=== PATIENT | female | born 1965 | race Caucasian/White ===

== ENCOUNTER → 2017-10-30 11:25 | Outpatient (CLI) | payer OTHER, SELFPAY ==
[2017-11-01 13:05] LABS: HPV Reflexed? NOT INDICATED
== END ==
PROVIDERS: Family Provider Student in an Organized Health Care Education/Training Program; PCP Student in an Organized Health Care Education/Training Program; Visit Provider Obstetrics & Gynecology
DX: Z12.4 Encounter for screening for malignant neoplasm of cervix (principal)
CPT/HCPCS: 88175; G0145

== ENCOUNTER → 2017-11-29 07:45 | Outpatient (CLI) | payer OTHER, SELFPAY ==
--- NOTE | 2017-11-29 07:52 | BI_ITS ---
MAMMOGRAPHY - BILATERAL SCREENING REASON FOR EXAM: Female, 52 years old. Routine annual screening examination. PERTINENT HISTORY: Aunt with breast cancer. TECHNIQUE: Digital bilateral breast justo (3D mammographic acquisition) in the CC and MLO projections. 2-D mediolateral oblique (MLO) and craniocaudad (CC) views of both breasts were obtained. CAD: Full Field Digital Mammography with Computer Added Detection was performed. COMPARISON: Comparison is made with prior study dated September 21, 2016 and August 05, 2015. FINDINGS: Breast Composition: The breasts are extremely dense, which lowers the sensitivity of mammography. Stable 1.1 cm x 0.7 cm well-defined nodule in the deep upper midportion of the left breast. On prior sonogram, this was demonstrated to be a small cyst. Since prior study, there now is evidence of a focal cluster microcalcification in the upper lateral anterior portion of the left breast. Correlation with magnification views is recommended. No other significant abnormalities are identified. BI/SCREENING MAMM (CAD), BILAT IMPRESSION: Cluster microcalcification in the left breast as described. The patient will be recalled for additional views including magnification spot radiographs. Stable nodular density in the left breast. ASSESSMENT CATEGORY: BIRADS Category 0: Incomplete. Need additional imaging evaluation. A letter regarding these results will be sent to the patient by the facility within 30 days. Approximately 10% of breast cancers are not detected by mammography. A normal mammogram should not delay biopsy of a clinically suspicious abnormality. [id number] Electronically Signed: Britton Johnson MD at 10:56 EDT Tel [phone], Service support ,
== END ==
PROVIDERS: Family Provider Family Medicine; PCP Family Medicine; Visit Provider Obstetrics & Gynecology
DX: Z12.31 Encounter for screening mammogram for malignant neoplasm of breast (principal)
CPT/HCPCS: 77063; 77067

== ENCOUNTER → 2017-12-04 15:00 | Outpatient (CLI) | payer OTHER, SELFPAY ==
--- NOTE | 2017-12-04 15:01 | BI_ITS ---
MAMMOGRAPHY - UNILATERAL DIAGNOSTIC: LEFT BREAST REASON FOR EXAM: Female, 52 years old. Microcalcifications in the upper outer quadrant of the left breast. PERTINENT HISTORY: TECHNIQUE: Compression magnification views were obtained. CAD: Full Field Digital Mammography with Computer Added Detection was performed. COMPARISON: Comparison is made with prior study dated November 29, 2017. FINDINGS: Breast Composition: The breasts are extremely dense, which lowers the sensitivity of mammography. Focal cluster-like calcification is seen in the upper lateral portion of the breast. A biopsy is recommended for further evaluation. No other significant abnormalities are identified. BI/DIAG MAMM W/CAD, UNILAT IMPRESSION: Cluster of microcalcifications seen in the upper-outer aspect of the left breast. Correlation with a biopsy is recommended. ASSESSMENT CATEGORY: BIRADS Category 4: Suspicious - Biopsy Should Be Considered. A letter regarding these results will be sent to the patient by the facility within 30 days. Approximately 10% of breast cancers are not detected by mammography. A normal mammogram should not delay biopsy of a clinically suspicious abnormality. Electronically Signed: Britton Johnson MD at 16:00 EDT Tel [phone], Service support ,
== END ==
PROVIDERS: Family Provider Family Medicine; PCP Family Medicine; Visit Provider Obstetrics & Gynecology
DX: R92.2 Inconclusive mammogram (principal)
CPT/HCPCS: 77065

== ENCOUNTER → 2017-12-18 09:52 | Outpatient (CLI) | payer OTHER, SELFPAY ==
--- NOTE | 2017-12-18 10:30 | BRBX_PTH ---
PATIENT: DEBORA PONCE LOC: [facility] U#:[id number] AGE/SX: 60/F ROOM: RE12/18/[address]: Dr. Comfort Leung MD : 1965 BED: DIS: SPEC #: [id number] RECD: 12/18/17 13:06 STATUS: DAGMAR LAILA #: [id number] SINGH: 12/18/17 10:[address]: Comfort Leung DEPT: SURGICAL PATHOLOGY RECD BY: Brian Barragan ENTERED: 12/18/17 13:17 SP TYPE: BREAST BX OTHR DR: Dr. Josue Rey MD Tissues: Left breast, NOS Procedures: Surgery Specimen Level IV HEADER OPERATION: Left breast stereotactic biopsy PRE-OP DIAGNOSIS: Left breast calcifications upper lateral portion TISSUE SUBMITTED: Left breast core tissue ISCHEMIC TIME: 1 minute FIXATION TIME: 9 hours MICROSCOPIC DIAGNOSIS Left breast, stereotactic core biopsy: Fibroadenoma with clustered microcalcifications. No evidence of malignancy. AM:balaji 12/19/17 MICROSCOPIC DESCRIPTION Slides are reviewed. GROSS DESCRIPTION Received is one container labeled with the patient's name and not further designated. The specimen consists of multiple irregular fragments of yellow-white soft tissue that in aggregate measure 2.5 x 2 x 0.2 cm. The specimen is totally submitted in one cassette. / AM:balaji 12/18/17 TC:5 CPT: 63511
--- NOTE | 2017-12-18 11:21 | PCM.OP.BLANK ---
Operative Report Date of Procedure: 12/18/17 rocedure: Stereotactic core biopsy Indications: 52 year-old female with microcalcifications in cluster in the upper outer quadrant of the left breast. Risk benefits were discussed the patient and she elected to proceed with stereotactic core biopsy with clip placement Description of procedure: Patient was brought into the mammography suite and laid prone on the stereotactic table. A timeout was completed verifying correct patient, procedure, site, specially, prior to beginning procedure. The left breast was prepped and draped in usual sterile fashion and using local anesthesia was obtained with 1% lidocaine. Patient's left breast was positioned and placed into compression. Initial film showed calcifications are in the center of the compression paddle. 15? views were then taken. The calcifications were localized. The left breast was prepped draped in usual sterile fashion. An 8-gauge mammotome was set up according to the digital coordinates. The tract of the mammotome was anesthetized with local anesthesia and an incision was made with the 11 blade scalpel at the entry site. The mammotome was advanced to the prefire state. Pre-prior films were checked and verified. The mammotome was fired. Post fire films were also checked and verified. Biopsies were taken from 9:00 to 3:00. The specimen was x-rayed and all the calcifications were within the specimen. Mammotome clip was placed at the 12 o'clock position. The mammotome was removed from the breast. An additional films were taken which showed all calcifications were removed and a clip was in place. Pressure was held for hemostasis. Once hemostasis was assured the wound was dressed with Steri-Strips and OpSite. Patient did have a 2 view mammography done to confirm placement of the clip. The patient tolerated the procedure well and was discharged from the mammography suite good condition. complications: none
== END ==
PROVIDERS: Family Provider Family Medicine; PCP Family Medicine; Visit Provider Surgery
DX: D24.2 Benign neoplasm of left breast (principal)
CPT/HCPCS: 19081; 88305; J7050

== ENCOUNTER → 2018-12-11 06:49 | Outpatient (CLI) | payer OTHER, SELFPAY ==
--- NOTE | 2018-12-11 | CER_PTH ---
PATIENT: DEBORA PONCE LOC: [facility] U#:[id number] AGE/SX: 60/F ROOM: RE12/11/[address]: Dr. Leida Alvarado MD : 1965 BED: DIS: SPEC #: [id number] RECD: 12/11/18 17:23 STATUS: DAGMAR REKedar #: [id number] SINGH: 12/11/18 00:[address]: Leida Alvarado DEPT: SURGICAL PATHOLOGY RECD BY: Zak Gustafson ENTERED: 12/12/18 14:23 SP TYPE: CERV OTHR DR: Dr. Josue Rey MD Tissues: A - Uterine cervix, NOS B - Uterine cervix, NOS Procedures: Surgery Specimen Level IV HEADER OPERATION: Endometrial biopsy PRE-OP DIAGNOSIS: N95.0, N84.1 TISSUE SUBMITTED: A - Endocervical, B - Endocervical polyp MICROSCOPIC DIAGNOSIS A. Endometrial biopsy: Proliferative endometrium with glandular and stromal breakdown. B. Endocervical polyp, biopsy: Inflamed benign endocervical polyp. [place]:balaji 12/13/18 MICROSCOPIC DESCRIPTION Slides are reviewed. GROSS DESCRIPTION A - Received in fixative is one container labeled with the patient's name and designated EMB. The specimen consists of multiple fragments of hemorrhagic mucoid tissue that in aggregate measure 2 x 1.5 x 0.2 cm. The specimen is totally submitted in one cassette. B - Received in fixative is one container labeled with the patient's name and designated polyp. The specimen consists of a das-pink polyp measuring 1.3 x 1 x 0.3 cm. Also present in the container are a few minute fragments of hemorrhagic soft tissue. The entire specimen is submitted in one cassette. / [place]:balaji 12/12/18 TC:5 [facility]: [id number] x2
== END ==
PROVIDERS: Family Provider Family Medicine; PCP Family Medicine; Visit Provider Obstetrics & Gynecology
DX: N95.0 Postmenopausal bleeding (principal); N84.1 Polyp of cervix uteri
CPT/HCPCS: 88305

== ENCOUNTER → 2018-12-23 11:20 | Outpatient (CLI) | payer OTHER, SELFPAY ==
[2018-12-24 17:33] LABS: HPV Reflexed? NOT INDICATED
== END ==
PROVIDERS: Visit Provider Obstetrics & Gynecology
DX: Z12.4 Encounter for screening for malignant neoplasm of cervix (principal)
CPT/HCPCS: 88175; G0145

== ENCOUNTER → 2019-01-03 12:48 | Outpatient (CLI) | payer OTHER, SELFPAY ==
[2017-12-13 10:38] VITALS: BMI 24.0
--- NOTE | 2019-01-03 12:51 | BI_ITS ---
MAMMOGRAPHY - BILATERAL SCREENING REASON FOR EXAM: Female, 53 years old. Routine annual screening examination. PERTINENT HISTORY: Aunt with breast cancer. Prior right stereotactic breast biopsy. TECHNIQUE: Digital bilateral breast justo (3D mammographic acquisition) in the CC and MLO projections. 2-D mediolateral oblique (MLO) and craniocaudad (CC) views of both breasts were obtained. CAD: Full Field Digital Mammography with Computer Added Detection was performed. COMPARISON: Comparison is made with prior examination dated November 29, 2017 and September 21, 2016. FINDINGS: Breast Composition: The breasts are extremely dense, which lowers the sensitivity of mammography. There are no dominant masses or suspicious calcifications. A tissue clip marker is seen in the calcifications in the anterior upper lateral portion of the left breast. Stable 1.1 cm x 0.7 cm well-defined nodule in the deep upper midportion of the left breast. On prior sonogram, this was demonstrated to be a cyst. No other significant abnormalities are identified. There has been no significant change since the prior study. BI/SCREENING MAMM (CAD), BILAT IMPRESSION: Stable bilateral screening mammogram. Yearly follow-up mammogram recommended. (A) ASSESSMENT CATEGORY: BIRADS Category 2: Benign. A letter regarding these results will be sent to the patient by the facility within 30 days. Approximately 10% of breast cancers are not detected by mammography. A normal mammogram should not delay biopsy of a clinically suspicious abnormality. [id number] Electronically Signed: Britton Johnson, at 14:18 EDT , Service support ,
== END ==
PROVIDERS: Family Provider Family Medicine; PCP Family Medicine; Referring Provider Obstetrics & Gynecology; Visit Provider Obstetrics & Gynecology
DX: Z12.31 Encounter for screening mammogram for malignant neoplasm of breast (principal)
CPT/HCPCS: 77063; 77067

== ENCOUNTER → 2019-02-03 08:15 | Outpatient (CLI) | payer OTHER, SELFPAY ==
[2019-02-03 10:51] LABS: Estradiol 30.8 pg/mL
== END ==
PROVIDERS: PCP Family Medicine; Visit Provider Obstetrics & Gynecology
DX: N92.6 Irregular menstruation, unspecified (principal)
CPT/HCPCS: 36415; 82670; 83001

== ENCOUNTER → 2020-07-20 08:41 | Outpatient (CLI) | payer OTHER, SELFPAY ==
--- NOTE | 2020-07-20 08:43 | BI_ITS ---
MAMMOGRAPHY - BILATERAL SCREENING REASON FOR EXAM: Female, 55 years old. Routine annual screening examination. PERTINENT HISTORY: TECHNIQUE: Digital bilateral breast mireille (3D mammographic acquisition) in the CC and MLO projections. 2-D mediolateral oblique (MLO) and craniocaudad (CC) views of both breasts were obtained. CAD: Full Field Digital Mammography with Computer Added Detection was performed. COMPARISON: None. FINDINGS: Breast Composition: Dense There are no dominant masses or suspicious calcifications. No other significant abnormalities are identified. BI/SCREEN MAMM (CAD) W/MIREILLE BILAT IMPRESSION: Stable bilateral screening mammogram. Yearly follow-up mammogram recommended. (A) ASSESSMENT CATEGORY: BIRADS Category 1: Negative. A letter regarding these results will be sent to the patient by the facility within 30 days. Approximately 10% of breast cancers are not detected by mammography. A normal mammogram should not delay biopsy of a clinically suspicious abnormality. [id number] Electronically Signed: Pedro Langley, at 17:42 EST Tel , Service support ,
== END ==
PROVIDERS: PCP Family Medicine; Referring Provider Student in an Organized Health Care Education/Training Program; Visit Provider Student in an Organized Health Care Education/Training Program
DX: Z12.31 Encounter for screening mammogram for malignant neoplasm of breast (principal)
CPT/HCPCS: 77063; 77067

== ENCOUNTER → 2021-04-20 14:30 | Outpatient (CLI) | payer OTHER, SELFPAY ==
[2021-04-26 17:00] LABS: HPV Reflexed? NOT INDICATED
== END ==
PROVIDERS: PCP Family Medicine; Visit Provider Obstetrics & Gynecology
DX: Z12.4 Encounter for screening for malignant neoplasm of cervix (principal)
CPT/HCPCS: 88175; G0145

== ENCOUNTER 2021-10-11 08:01 | Outpatient (CLI) | payer OTHER, SELFPAY ==
--- NOTE | 2021-10-11 08:03 | BI_ITS ---
MAMMOGRAPHY - BILATERAL SCREENING REASON FOR EXAM: Female, 56 years old. Routine annual screening examination. PERTINENT HISTORY: Aunt with breast cancer. History of prior right stereotactic breast biopsy. TECHNIQUE: Digital bilateral breast mireille (3D mammographic acquisition) in the CC and MLO projections. 2-D mediolateral oblique (MLO) and craniocaudad (CC) views of both breasts were obtained. CAD: Full Field Digital Mammography with Computer Added Detection was performed. COMPARISON: Comparison is made with prior study dated 07/20/2020 and 01/03/2019. FINDINGS: Breast Composition: The breasts are extremely dense, which lowers the sensitivity of mammography. There are no dominant masses or suspicious calcifications. A tissue clip marker is once again seen in the upper anterior lateral aspect of the left breast. No other significant abnormalities are identified. There has been no significant change since the prior study. BI/SCRN MAMM (CAD)W/MIREILLE BILAT IMPRESSION: Stable bilateral screening mammogram. Yearly follow-up mammogram recommended. (A) ASSESSMENT CATEGORY: BIRADS Category 2: Benign. A letter regarding these results will be sent to the patient by the facility within 30 days. Approximately 10% of breast cancers are not detected by mammography. A normal mammogram should not delay biopsy of a clinically suspicious abnormality. [id number] Electronically Signed: Britton Johnson MD at 8:54 EST ,
== END 2021-10-11 23:59 | disposition home or self-care (01) ==
LOC: OPBI 08:02
PROVIDERS: PCP Family Medicine; Referring Provider Student in an Organized Health Care Education/Training Program; Visit Provider Student in an Organized Health Care Education/Training Program
DX: Z12.31 Encounter for screening mammogram for malignant neoplasm of breast (principal)
CPT/HCPCS: 77063; 77067

== ENCOUNTER → 2023-09-12 | Outpatient (CLI) | payer OTHER, MEDICAID, SELFPAY ==
--- OUTSIDE RECORDS SUMMARY | 2023-09-12 16:05 | XMS RPT_ITS | CCD ---
Author Name Unknown Address [address] [place] [address] Organization [facility] Care Team Providers Care Sales Recruiting Coordinator Name Role Phone Tony Rey MD Primary Care Provider TONY REY Referring Unavailable TONY REY Primary Care Unavailable TONY REY Attending Unavailable TONY REY Primary Care Unavailable TONY REY Attending Unavailable TONY REY Primary Care Unavailable TONY REY Referring Unavailable TONY REY Referring Unavailable TONY REY Primary Care Unavailable TONY REY Referring Unavailable TONY REY Primary Care Unavailable LUKE MARTEL Attending Unavailable Tony Rey MD Primary Care Provider Medications Current Medications Medication Drug Class(es) Dates Sig (Normalized) Sig (Original) ALPRAZolam 0.5 mg oral tablet (8 sources) Benzodiazepine Start: 05-09-2019 End: 03-30-2022 take 1 tablet by mouth every 30 days at bedtime as needed ALPRAZolam (XANAX) 0.5 mg tablet Indications: Depression with anxiety Take 1 tablet by mouth at bedtime as needed for up to 30 days. 30 tablet 0 02/28/2022 03/30/2022 Active Completed/Discontinued Medications Medication Drug Class(es) Dates Sig (Normalized) Sig (Original) bisacodyl 5 mg delayed release oral tablet (8 sources) Stimulant Laxative Start: 10-10-2021 Bisacodyl (DULCOLAX) 5 mg tab Indications: Screening for colon cancer Use as directed for Miralax / Gatorade Bowel Prep Kit 4 tablet 0 10/10/2021 Active Problems Active Problems Problem Classification Problem Date Documented Date Episodic/Chronic Anxiety disorders (20 sources) Mixed anxiety and depressive disorder; Translations: [Other specified anxiety disorders] Onset: 08-21-2012 08-21-2012 Chronic Conditions associated with dizziness or vertigo (19 sources) Meniere's disease; Translations: [Meniere's disease, unspecified ear] Onset: 09-27-2016 09-27-2016 Chronic Disorders of lipid metabolism (2 sources) Mixed hyperlipidemia; Translations: [Mixed hyperlipidemia] Onset: 04-06-2023 04-06-2023 Chronic Headache; including migraine (18 sources) Migraine; Translations: [Migraine, unspecified, not intractable, without status migrainosus] Onset: 08-21-2012 08-21-2012 Chronic Immunizations and screening for infectious disease (5 sources) Patient encounter status; Translations: [Encounter for screening for human papillomavirus (HPV)] Onset: 10-30-2022 Episodic Mood disorders (16 sources) Seasonal affective disorder; Translations: [Other recurrent depressive disorders] Onset: 08-21-2012 08-21-2012 Chronic Other ear and sense organ disorders (1 source) Blood in ear canal; Translations: [Otorrhagia, left ear] Episodic Past or Other Problems Problem Classification Problem Date Documented Da te Episodic/Chronic Other screening for suspected conditions (not mental disorders or infectious disease) (8 sources) Cancer cervix screening status; Translations: [Encounter for screening for malignant neoplasm of cervix] Onset: 10-30-2022 Episodic Residual codes; unclassified (16 sources) Insomnia; Translations: [Insomnia, unspecified] Onset: 08-05-2013 08-05-2013 Episodic Results Test Name Value Interpretation Reference Range Facil ity Vital Signs Date Time Vital Sign Value Performing Clinician Susan win 04-06-2023 09:38-0400 Body height 161.3 cm Tony Rey MD Work Phone: [facility] 04-06-2023 09:38-0400 Body weight 65.95 kg Tony Rey MD Work Phone: [facility] 04-06-2023 09:38-0400 Diastolic blood pressure 78 mm[Hg] Tony Rey MD Work Phone: [facility] 04-06-2023 09:38-0400 Heart rate 78 /min Tony Rey MD Work Phone: [facility] 04-06-2023 09:38-0400 SaO2% (BldA) [Mass fraction] 98 % Tony Rey MD Work Phone: [facility] 04-06-2023 09:38-0400 Systolic blood pressure 114 mm[Hg] Tony Rey MD Work Phone: [facility] 10-30-2022 09:44-0500 Body height 161.3 cm Luke Martel MD Work Phone: [facility] 10-30-2022 09:44-0500 Body weight 64.41 kg Luke Martel MD Work Phone: [facility] 10-30-2022 09:44-0500 Diastolic blood pressure 60 mm[Hg] Luke Martel MD Work Phone: [facility] 10-30-2022 09:44-0500 Systolic blood pressure 116 mm[Hg] Luke Martel MD Work Phone: [facility] 02-28-2022 14:45-0400 Body weight 68.49 kg Tony Rey MD Work Phone: [facility] 02-28-2022 14:45-0400 Diastolic blood pressure 78 mm[Hg] Tony Rey MD Work Phone: [facility] 02-28-2022 14:45-0400 Heart rate 79 /min Tony Rey MD Work Phone: [facility] 02-28-2022 14:45-0400 Respiratory rate 16 /min Tony Rey MD Work Phone: [facility] 02-28-2022 14:45-0400 SaO2% (BldA) [Mass fraction] 98 % Tony Rey MD Work Phone: [facility] 02-28-2022 14:45-0400 Systolic blood pressure 108 mm[Hg] Tony Rey MD Work Phone: [facility] 01-05-2022 12:03-0400 Body temperature 98.71 [degF] Kylee Amanda APRN.CNP Work Phone: [facility] 01-05-2022 12:03-0400 Body weight 68.95 kg Klyee Vasiliy BUSINESS OBJECTS DEVELOPER.ART EDUCATION PROFESSOR Work Phone: [facility] 01-05-2022 12:03-0400 Diastolic blood pressure 68 mm[Hg] Kylee Vasiliy BUSINESS OBJECTS DEVELOPER.ART EDUCATION PROFESSOR Work Phone: [facility] 01-05-2022 12:03-0400 Heart rate 74 /min Kylee Vasiliy BUSINESS OBJECTS DEVELOPER.ART EDUCATION PROFESSOR Work Phone: [facility] 01-05-2022 12:03-0400 Respiratory rate 16 /min Kylee Vasiliy BUSINESS OBJECTS DEVELOPER.ART EDUCATION PROFESSOR Work Phone: [facility] 01-05-2022 12:03-0400 SaO2% (BldA) [Mass fraction] 98 % Kylee Vasiliy BUSINESS OBJECTS DEVELOPER.ART EDUCATION PROFESSOR Work Phone: [facility] 01-05-2022 12:03-0400 Systolic blood pressure 122 mm[Hg] Kylee Vasiliy BUSINESS OBJECTS DEVELOPER.ART EDUCATION PROFESSOR Work Phone: [facility] 11-29-2021 14:31-0400 Respiratory rate 16 /min Willie Avelar MD Work Phone: [facility] 11-29-2021 14:21-0400 Diastolic blood pressure 63 mm[Hg] Willie Avelar MD Work Phone: [facility] 11-29-2021 14:21-0400 Heart rate 81 /min Willie Avelar MD Work Phone: [facility] 11-29-2021 14:21-0400 SaO2% (BldA) [Mass fraction] 100 % Willie Avelar MD Work Phone: [facility] 11-29-2021 14:21-0400 Systolic blood pressure 122 mm[Hg] Willie Avelar MD Work Phone: [facility] 11-29-2021 12:50-0400 Body temperature 97.3 [degF] Willie Avelar MD Work Phone: [facility] 11-29-2021 12:50-0400 Body weight 67.6 kg Willie Avelar MD Work Phone: [facility] Encounters Encounter Date Encounter Type Care Provider Facility Start: 04-06-2023 End: 04-07-2023 ambulatory TONY REY Facility:[facility] Start: 04-06-2023 End: 04-06-2023 Patient encounter procedure Tony Rey MD Work Phone: [facility] Procedures Date Procedure Procedure Detail Performing Clinician Start: 11-08-2022 Lipid 1996 panel - S chase or Plasma Screen Wstr Start: 10-30-2022 End: 10-30-2022 Mammography Tony Rey MD Work Phone: Start: 11-29-2021 Colonoscopy flx dx w /collj spec when pfrmd Gabrielle Cantor BUSINESS OBJECTS DEVELOPER.ART EDUCATION PROFESSOR Work Phone: Start: 11-29-2021 Colonoscopy Willie carson MD Work Phone: Start: 10-11-2021 Mammography Willie carson MD Work Phone: Plan of Treatment Date Care Activity Detail Author Start: 07-05-2028 Urine microalbumin profile [facility] Start: 11-09-2027 Lipid 1996 panel - S chase or Plasma Lipid Screening [facility] Start: 11-09-2027 LIPID SCREEN LIPID SCREEN [facility] Start: 10-31-2027 HPV TESTING HPV TESTING [facility] Start: 10-31-2027 PAP TESTING PAP TESTING [facility] Start: 11-29-2026 Colonoscopy COLONOSCOPY [facility] Start: 11-29-2026 COLORECTAL CANCER SCREENING COLORECTAL CANCER SCREENING [facility] Start: 09-08-2026 LIPID SCREEN LIPID SCREEN [facility] Start: 04-26-2026 HPV TESTING HPV TESTING [facility] Start: 04-26-2026 PAP TESTING PAP TESTING [facility] Start: 11-08-2025 DIABETES SCREEN DIABETES SCREEN [facility] Start: 11-08-2025 Diabetes Screening Diabetes Screenin g [facility] Start: 09-08-2024 DIABETES SCREEN DIABETES SCREEN [facility] Start: 04-06-2024 COVID-19 VACCINE (4 - Moderna series) COVID-19 VACCINE (4 - Moderna series) [facility] Immunizations Immunization Date Immunization Notes Care Provider Eleanor king 07-05-2018 tetanus toxoid, redu gladis diphtheria toxoid, and acellular pertussis vaccine, adsorbed Willie Avelar MD Work Phone: [facility] 04-12-2018 influenza virus vacc ine, unspecified formulation Screen Wstr [facility] Payers Date Payer Category Payer Unknown [id number] 2020 Unknown [facility] PPO [employer] [id number] 2020-Present [phone] [address] [place] [address] PPO [id number] 2020 Unknown [id number] 2020 Unknown [id number] Social History Date Type Detail Facility Start: 11-20-2014 Tobacco smoking status NHIS Never smoked tobacco [facility] Start: 11-29-2021 End: 10-30-2022 Alcohol intake Current drinker of alcohol (finding) [facility] Start: 06-08-2020 End: 10-05-2022 History SDOH Alcohol Frequency 1 [facility] Start: 06-09-2016 History SDOH Alcohol Comment once a week [facility] Start: 06-08-2020 End: 10-05-2022 History SDOH Social Connections Phone 2 [facility] Start: 06-08-2020 End: 10-05-2022 History SDOH Social Connections Living 3 [facility] Start: 06-08-2020 End: 10-05-2022 History SDOH Physical Activity DPW 0 [facility] Start: 06-08-2020 End: 10-05-2022 History SDOH Stress 5 [facility] Start: 06-08-2020 Education 20 [facility] Start: 1965 Sex Assigned At Female [facility] Start: 11-19-2021 End: 01-05-2022 Exposure to SARS-CoV-2 (event) Not sure [facility] Work Phone: Start: 11-20-2014 Tobacco use and exposure Smokeless tobacco non-user [facility] Start: 10-05-2022 History SDOH Physical Activity DPW 7 [facility] Start: 08-02-2020 End: 10-05-2022 History of Social function [facility] Start: 08-02-2020 End: 10-05-2022 Social connection and isolation panel [facility] Do you belong to any clubs or organizations such as congregational groups, unions, fraternal or athletic groups, or school groups? No [facility] Are you now , , , , never or living with a partner? [facility] How often to you hav e a drink containing alcohol? Never [facility] How many standard dr inks containing alcohol do you have on a typical day? Patient does not drink [facility] Do you feel stress - tense, restless, nervous, or anxious, or unable to sleep at night because your mind is troubled all the time - these days [OSQ] To some extent [facility] (I/We) worried wheth er (my/our) food would run out before (I/we) got money to buy more. Never true [facility] Start: 06-08-2020 Gender identity Identifies as female gender (finding) [facility] Start: 06-08-2020 Sexual orientation Heterosexual (finding) [facility] Clinical Notes 11-26-2014 to 04-06-2023 Tony Rey MD - 04/06/2023 9:38 AM EDTTelephone Encounter - Marcello Sandoval LPN - 11/27/2022 10:13 AM EDTTelephone Encounter - Tony Rey MD - 11/01/2022 5:23 PM ESTPatient Instructions Note Date & Type Note Facility 04-06-2023 Note HNO ID: [id number] Author: Tony Rey MD Service: ? Author Type: Physician Type: Progress Notes Filed: 04/06/2023 10:20 AM Note Text: Patient presents with: 6 Month Exam HPI: Patient presents today for office visit for follow up. PSYCH: Continues on Citalopram 40 mg daily Was increased back in November 2022 from 20 mg No side effects to medications Dealing with a lot emotionally. Her nephew from cancer on Sunday. She's having a hard time with that. Still a lot of work related stress. Offered counseling. Meniere's: Using HCTZ and Meclizine prn. Started to see flashes of light with her left eye. Has seen optho. They are following closely. Does have floaters. Retina is apparently ok. MEDICATIONS: Current Outpatient Medications Medication Sig citalopram (CELEXA) 40 mg tablet Take 1 tablet by mouth once daily. hydroCHLOROthiazide (HYDRODIURIL, ESIDRIX) 12.5 mg capsule Take 1 capsule by mouth once daily as needed (dizziness per ENT). meclizine (ANTIVERT) 12.5 mg tab Take 1 tablet by mouth three times daily as needed (dizziness). qycuuzsd-uha-jvxp-FA-lutein 8 mg iron-400 mcg-300 mcg tab Take by mouth. No current facility-administered medications for this visit. ALLERGIES: ALLERGIES No Known Allergies PAST MEDICAL HISTORY Diagnosis Date Adjustment disorder with depressed mood Anxiety Meniere disease Neuropathy fine nerve (feet) Seasonal affective disorder (HCC) PAST SURGICAL HISTORY Procedure Laterality Date COLONOSCOPY 11/29/2021 repeat in 5 years RHINP PRIM LATANDALAR CRTLGSAND/ELVTN NASAL TI 08/27/1989 Rhinoplasty FAMILY HISTORY Problem Relation Age of Onset Heart Failure Mother Alcohol/Drug Father Cancer Father skin Diabetes Father Colon Cancer Brother 76 Cancer Brother lymphoma Psychiatry Daughter depression Social History Tobacco Use Smoking status: Never Smokeless tobacco: Never Substance Use Topics Alcohol use: Yes Comment: once a week Drug use: No Reviewed current medications, allergies, past medical history, surgical history, family history and social history today. REVIEW OF SYSTEMS No chest pain or shortness of breath. All other reviewed and negative other than HPI. HEALTH MAINTENANCE: Reviewed health maintenance issues today and recommended the following in detail. SHINGRIX VACCINE(1 of 2) Never done COVID-19 VACCINE(4 - Moderna series) due on 10/22/2021 VITALS: BP 114/78 Pulse 78 Ht 161.3 cm (5' 3.5 ) Wt 66 kg (145 lb 6.4 oz) LMP 08/23/2015 SpO2 98% BMI 25.35 kg/m? Last 4 Encounter Wt Readings: Date: Wt: 04/06/2023 66 kg (145 lb 6.4 oz) 10/30/2022 64.4 kg (142 lb) 10/06/2022 64 kg (141 lb) 02/28/2022 68.5 kg (151 lb) PHYSICAL EXAMINATION: General appearance: Well appearing, alert, in no acute distress, well-hydrated, well nourished. Skin: Skin color, texture, turgor normal, no suspicious rashes or lesions Head: Normocephalic, no masses, lesions, tenderness or abnormalities Lungs: Lungs clear to auscultation. No wheezing, rhonchi, rales Heart: RRR without murmur, gallop, or rubs. No ectopy Abdomen: Normal abdominal exam, Abdomen soft, non-tender. Bowel sounds normal. No masses, organomegaly Extremities: No deformities, edema, skin discoloration, clubbing or cyanosis. Good capillary refill. , has small ganlion cyst on right hand, finger. Red flags for re-assessment reviewed with patient in detail. ASSESSMENT/PLAN: 1. Depression with anxiety - ICD9: 300.4, ICD10: F41.8 (primary diagnosis) - continue meds. Call if any issues. Add trazadone prn. Discussed risks and benefits of new medication with the patient. Advised them to call if any side effects or questions. Offered counseling. - CBC + DIFF - COMP METABOLIC PANEL 2. Meniere's disease, unspecified laterality - ICD9: 386.00, ICD10: H81.09 - stable 3. Other migraine without status migrainosus, intractable - ICD9: 346.81, ICD10: G43.819 - follow meds. - CBC + DIFF - COMP METABOLIC PANEL 4. Mixed hyperlipidemia - ICD9: 272.2, ICD10: E78.2 - LIPID PANEL BASIC Tony Rey MD [facility] 04-06-2023 History of Presen t illness Narrative Patient presents with: 6 Month Exam HPI: Patient presents today for office visit for follow up. PSYCH: Continues on Citalopram 40 mg daily Was increased back in November 2022 from 20 mg No side effects to medications Dealing with a lot emotionally. Her nephew from cancer on Sunday. She's having a hard time with that. Still a lot of work related stress. Offered counseling. Meniere's: Using HCTZ and Meclizine prn. Started to see flashes of light with her left eye. Has seen optho. They are following closely. Does have floaters. Retina is apparently ok. MEDICATIONS: Current Outpatient Medications Medication Sig citalopram (CELEXA) 40 mg tablet Take 1 tablet by mouth once daily. hydroCHLOROthiazide (HYDRODIURIL, ESIDRIX) 12.5 mg capsule Take 1 capsule by mouth once daily as needed (dizziness per ENT). meclizine (ANTIVERT) 12.5 mg tab Take 1 tablet by mouth three times daily as needed (dizziness). ntzqdnax-rqx-osqk-FA-lutein 8 mg iron-400 mcg-300 mcg tab Take by mouth. No current facility-administered medications for this visit. ALLERGIES: ALLERGIES No Known Allergies PAST MEDICAL HISTORY Diagnosis Date Adjustment disorder with depressed mood Anxiety Meniere disease Neuropathy fine nerve (feet) Seasonal affective disorder (HCC) PAST SURGICAL HISTORY Procedure Laterality Date COLONOSCOPY 11/29/2021 repeat in 5 years RHINP PRIM LAT&ALAR CRTLGS&/ELVTN NASAL TI 08/27/1989 Rhinoplasty FAMILY HISTORY Problem Relation Age of Onset Heart Failure Mother Alcohol/Drug Father Cancer Father skin Diabetes Father Colon Cancer Brother 76 Cancer Brother lymphoma Psychiatry Daughter depression Social History Tobacco Use Smoking status: Never Smokeless tobacco: Never Substance Use Topics Alcohol use: Yes Comment: once a week Drug use: No Reviewed current medications, allergies, past medical history, surgical history, family history and social history today. REVIEW OF SYSTEMS No chest pain or shortness of breath. All other reviewed and negative other than HPI. HEALTH MAINTENANCE: Reviewed health maintenance issues today and recommended the following in detail. SHINGRIX VACCINE(1 of 2) Never done COVID-19 VACCINE(4 - Moderna series) due on 10/22/2021 VITALS: BP 114/78 Pulse 78 Ht 161.3 cm (5' 3.5 ) Wt 66 kg (145 lb 6.4 oz) LMP 08/23/2015 SpO2 98% BMI 25.35 kg/m Last 4 Encounter Wt Readings: Date: Wt: 04/06/2023 66 kg (145 lb 6.4 oz) 10/30/2022 64.4 kg (142 lb) 10/06/2022 64 kg (141 lb) 02/28/2022 68.5 kg (151 lb) PHYSICAL EXAMINATION: General appearance: Well appearing, alert, in no acute distress, well-hydrated, well nourished. Skin: Skin color, texture, turgor normal, no suspicious rashes or lesions Head: Normocephalic, no masses, lesions, tenderness or abnormalities Lungs: Lungs clear to auscultation. No wheezing, rhonchi, rales Heart: RRR without murmur, gallop, or rubs. No ectopy Abdomen: Normal abdominal exam, Abdomen soft, non-tender. Bowel sounds normal. No masses, organomegaly Extremities: No deformities, edema, skin discoloration, clubbing or cyanosis. Good capillary refill. , has small ganlion cyst on right hand, finger. Red flags for re-assessment reviewed with patient in detail. ASSESSMENT/PLAN: 1. Depression with anxiety - ICD9: 300.4, ICD10: F41.8 (primary diagnosis) - continue meds. Call if any issues. Add trazadone prn. Discussed risks and benefits of new medication with the patient. Advised them to call if any side effects or questions. Offered counseling. - CBC + DIFF - COMP METABOLIC PANEL 2. Meniere's disease, unspecified laterality - ICD9: 386.00, ICD10: H81.09 - stable 3. Other migraine without status migrainosus, intractable - ICD9: 346.81, ICD10: G43.819 - follow meds. - CBC + DIFF - COMP METABOLIC PANEL 4. Mixed hyperlipidemia - ICD9: 272.2, ICD10: E78.2 - LIPID PANEL BASIC Tony Rey MD documented in this encounter [facility] 11-27-2022 Miscellaneous Notes See pt message. [facility] 10/06/22. Pt has rx for citalopram 40mg tablet that she takes 0.5 tablet daily. Please advise. Marcello Sandoval LPN documented in this encounter [facility] 11-01-2022 Miscellaneous Notes Reviewed addendum of mammogram. Does not need it now. Will cancel the previous mammogram orders. Discussed with patient. documented in this encounter [facility] 11-01-2022 Miscellaneous Notes Pt called and is notified of providers results and instructions. Pt voices understanding. Pt put through to scheduling at [phone]. Mariely Davis RN Radiology is asking for additional views of left breast for better pictures. Orders placed. documented in this encounter [facility] 10-30-2022 Note HNO ID: [id number] Author: Renae Sheridan Service: ? Author Type: Risk Advisor Type: Progress Notes Filed: 10/30/2022 10:43 AM Note Text: Radiology Service Progress Note PATIENT NAME: Debora Sena DATE OF SERVICE: October 30, 2022 TIME: 10:24 AM PATIENT IDENTITY VERIFICATION COMPLETED USING TWO (2) IDENTIFIERS: Name and Date of confirmed by patient verbally. FALL SCREENING: Has the patient had 2 falls in the last year or 1 fall with injury or currently using an Ambulatory Assistive Device (Walker, Cane, Wheelchair, Crutches, etc.)? No PATIENT GENDER DATA: Female. status: : No status: NO. PATIENT RELEVANT IMPLANT DATA REVIEWED: Not Applicable RADIOLOGY DEPARTMENT: Mammography PERIPHERAL IV DATA: Not applicable SIGNED BY: Renae Sheridan October 30, 2022 10:24 AM [facility] 10-30-2022 Note HNO ID: [id number] Author: Luke Martel MD Service: ? Author Type: Physician Type: Progress Notes Filed: 10/30/2022 10:08 AM Note Text: Debora is a 57 year old No obstetric history on file. who presents for an annual gynecologic exam with complaints, some feeling of prolapse. Has been recommended estrogen cream but forgets to use. No vaginal bleeding. Not really uncomfortable. Not currently sexually active b/c of pain since had second child and has had deep dyspareunia since than. Postmenopausal: yes HRT use: No. Last Pap: normal HPV: negative History of abnormal pap: No Last mammogram: today pending History of abnormal mammogram: No Sexually active: No OB History No obstetric history on file. 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 Comments: Sexual Activity: Not Currently; Male Contraception: No contraception data on record PAST MEDICAL HISTORY Diagnosis Date Adjustment disorder with depressed mood Anxiety Meniere disease Neuropathy fine nerve (feet) Seasonal affective disorder (HCC) PAST SURGICAL HISTORY Procedure Laterality Date COLONOSCOPY 11/29/2021 repeat in 5 years RHINP PRIM LATANDALAR CRTLGSAND/ELVTN NASAL TI 08/27/1989 Rhinoplasty FAMILY HISTORY Problem Relation Age of Onset Heart Failure Mother Alcohol/Drug Father Cancer Father skin Diabetes Father Colon Cancer Brother 76 Cancer Brother lymphoma Psychiatry Daughter depression SOCIAL HISTORY Social History Tobacco Use Smoking status: Never Smokeless tobacco: Never Substance Use Topics Alcohol use: Yes Comment: once a week Drug use: No REVIEW OF SYSTEMS Abdomen: No abdominal pain, nausea, vomiting, diarrhea, or constipation. No bloating, early satiety, indigestion, or increased flatulence. Bladder: No dysuria, gross hematuria, urinary frequency, urinary urgency, or incontinence Breast: No breast lumps, nipple d/c, overlying skin changes, redness or skin retraction Allergies and current medication updated:Yes EXAM: BP 116/60 Ht 5' 3.5 (1.61m) Wt 142 lb (64.4kg) LMP 08/23/2015 BMI 24.76 kg/(m2). GENERAL: pleasant, female in no apparent distress HEENT: Normocephalic, atraumatic, mucus membranes moist, and no lesions NECK: Supple, full range of motion, no adenopathy, and thyroid normal DERMATOLOGY: Normal, without lesions, non-icteric, and non-hirsute BREAST: soft, non-tender, symmetric, no dominant mass, normal nipple-areolar complex, no lymphadenopathy, and no nipple discharge CHEST: Normal inspiratory effort ABDOMEN: soft, non-tender, and no masses PELVIC: external genitalia normal, normal Bartholin's glands, urethra, [place]'s glands, no vulvar lesions, no cervical lesions, physiologic discharge present, normal appearing perineal body and perianal region, cystocele 2nd degree, rectocele 1st degree, cervical prolapse 2nd degree BIMANUAL: uterus normal size, shape and consistency, no adnexal masses, and non-tender RECTOVAGINAL: deferred. NEURO: alert and oriented x3,exam grossly non-focal EXTREMITIES: normal ASSESSMENT/PLAN: 1) Health maintenance: Pap done with HPV. Mammogram ordered other health screens per PCP proloapse- does not desire trial of pessary or intervention for now 2) Follow up one year or sooner as needed Luke Martel MD [facility] 10-30-2022 History of Presen t illness Narrative Radiology Service Progress Note PATIENT NAME: Debora Sena DATE OF SERVICE: October 30, 2022 TIME: 10:24 AM PATIENT IDENTITY VERIFICATION COMPLETED USING TWO (2) IDENTIFIERS: Name and Date of confirmed by patient verbally. FALL SCREENING: Has the patient had 2 falls in the last year or 1 fall with injury or currently using an Ambulatory Assistive Device (Walker, Cane, Wheelchair, Crutches, etc.)? No PATIENT GENDER DATA: Female. status: : No status: NO. PATIENT RELEVANT IMPLANT DATA REVIEWED: Not Applicable RADIOLOGY DEPARTMENT: Mammography PERIPHERAL IV DATA: Not applicable SIGNED BY: Cristi SheridanMyVR Pia October 30, 2022 10:24 AM documented in this encounter [facility] 10-30-2022 History of Presen t illness Narrative Debora is a 57 year old No obstetric history on file. who presents for an annual gynecologic exam with complaints, some feeling of prolapse. Has been recommended estrogen cream but forgets to use. No vaginal bleeding. Not really uncomfortable. Not currently sexually active b/c of pain since had second child and has had deep dyspareunia since than. Postmenopausal: yes HRT use: No. Last Pap: normal HPV: negative History of abnormal pap: No Last mammogram: today pending History of abnormal mammogram: No Sexually active: No OB History No obstetric history on file. 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 Comments: Sexual Activity: Not Currently; Male Contraception: No contraception data on record PAST MEDICAL HISTORY Diagnosis Date Adjustment disorder with depressed mood Anxiety Meniere disease Neuropathy fine nerve (feet) Seasonal affective disorder (HCC) PAST SURGICAL HISTORY Procedure Laterality Date COLONOSCOPY 11/29/2021 repeat in 5 years RHINP PRIM LAT&ALAR CRTLGS&/ELVTN NASAL TI 08/27/1989 Rhinoplasty FAMILY HISTORY Problem Relation Age of Onset Heart Failure Mother Alcohol/Drug Father Cancer Father skin Diabetes Father Colon Cancer Brother 76 Cancer Brother lymphoma Psychiatry Daughter depression SOCIAL HISTORY Social History Tobacco Use Smoking status: Never Smokeless tobacco: Never Substance Use Topics Alcohol use: Yes Comment: once a week Drug use: No REVIEW OF SYSTEMS Abdomen: No abdominal pain, nausea, vomiting, diarrhea, or constipation. No bloating, early satiety, indigestion, or increased flatulence. Bladder: No dysuria, gross hematuria, urinary frequency, urinary urgency, or incontinence Breast: No breast lumps, nipple d/c, overlying skin changes, redness or skin retraction Allergies and current medication updated:Yes EXAM: BP 116/60 Ht 5' 3.5 (1.61m) Wt 142 lb (64.4kg) LMP 08/23/2015 BMI 24.76 kg/(m^2). GENERAL: pleasant, female in no apparent distress HEENT: Normocephalic, atraumatic, mucus membranes moist, and no lesions NECK: Supple, full range of motion, no adenopathy, and thyroid normal DERMATOLOGY: Normal, without lesions, non-icteric, and non-hirsute BREAST: soft, non-tender, symmetric, no dominant mass, normal nipple-areolar complex, no lymphadenopathy, and no nipple discharge CHEST: Normal inspiratory effort ABDOMEN: soft, non-tender, and no masses PELVIC: external genitalia normal, normal Bartholin's glands, urethra, [place]'s glands, no vulvar lesions, no cervical lesions, physiologic discharge present, normal appearing perineal body and perianal region, cystocele 2nd degree, rectocele 1st degree, cervical prolapse 2nd degree BIMANUAL: uterus normal size, shape and consistency, no adnexal masses, and non-tender RECTOVAGINAL: deferred. NEURO: alert and oriented x3,exam grossly non-focal EXTREMITIES: normal ASSESSMENT/PLAN: 1) Health maintenance: Pap done with HPV. Mammogram ordered other health screens per PCP proloapse- does not desire trial of pessary or intervention for now 2) Follow up one year or sooner as needed Luke Martel MD documented in this encounter [facility] 10-06-2022 Note HNO ID: [id number] Author: Tony Rey MD Service: ? Author Type: Physician Type: Progress Notes Filed: 10/06/2022 10:11 AM Note Text: Patient presents with: 6 Month Exam HPI: Patient presents today for office visit for follow up. PSYCH: Currently tolerating medications well: Yes . Side effects: No. Sleep issues: same sleep issues nothing new. Menopause related. Using some natural things she has found that are helping her. Energy changes: No. Appetite changes: No. Current depression: No. Current anxiety: No. Suicidal ideation: No. She is better with her current job situation. Meniere's disease: not currently using her hctz. Is currently doing well. Component Latest Ref Rng AND Units 09/08/2021 WBC 3.70 - 11.00 k/uL 6.18 RBC 3.90 - 5.20 m/uL 4.85 Hemoglobin 11.5 - 15.5 g/dL 14.6 Hematocrit 36.0 - 46.0 % 45.5 MCV 80.0 - 100.0 fL 93.8 MCH 26.0 - 34.0 pG 30.1 MCHC 30.5 - 36.0 g/dL 32.1 RDW-CV 11.5 - 15.0 % 14.0 Platelet Count 150 - 400 k/uL 286 MPV 9.0 - 12.7 fL 9.6 Neut% % 51.4 Abs Neut (ANC) 1.45 - 7.50 k/uL 3.16 Lymph% % 34.3 Abs Lymph 1.00 - 4.00 k/uL 2.12 Morris% % 8.4 Abs Morris <0.87 k/uL 0.52 Eosin% % 5.3 Abs Eosin <0.46 k/uL 0.33 Baso% % 0.6 Abs Baso <0.11 k/uL 0.04 Nucleated Reds 0 /100 WBC 0.0 Absolute nRBC <0.01 k/uL <0.01 Diff Type Auto Diff Protein, Total 6.3 - 8.0 g/dL 7.1 Albumin 3.9 - 4.9 g/dL 4.5 Calcium 8.5 - 10.2 mg/dL 10.2 Bilirubin, Total 0.2 - 1.3 mg/dL 0.4 Alkaline Phosphatase 34 - 123 U/L 107 AST 13 - 35 U/L 18 Glucose 74 - 99 mg/dL 84 BUN 7 - 21 mg/dL 16 Creatinine 0.58 - 0.96 mg/dL 0.83 Sodium 136 - 144 mmol/L 141 Potassium 3.7 - 5.1 mmol/L 4.1 Chloride 97 - 105 mmol/L 101 CO2 22 - 30 mmol/L 30 Anion Gap 9 - 18 mmol/L 10 ALT 7 - 38 U/L 15 eGFR- >60 eGFR-All Other Races . >60 Cholesterol, Total <200 mg/dL 240 (H) Triglyceride <150 mg/dL 157 (H) HDL Cholesterol >39 mg/dL 73 LDL Cholesterol <100 mg/dL 136 (H) Non HDL Cholesterol <130 mg/dL 167 (H) Fasting Time hrs 12 VLDL Cholesterol <30 mg/dL 31 (H) TC:HDL Ratio <5.10 3.29 LDL:HDL Ratio <2.54 1.86 MEDICATIONS: Current Outpatient Medications Medication Sig citalopram (CELEXA) 40 mg tablet Take 0.5 tablets by mouth once daily. hydroCHLOROthiazide (HYDRODIURIL, ESIDRIX) 12.5 mg capsule Take 1 capsule by mouth once daily as needed (dizziness per ENT). meclizine (ANTIVERT) 12.5 mg tab Take 1 tablet by mouth three times daily as needed (dizziness). jphbynwb-umt-xaeu-FA-lutein (CENTRUM SILVER WOMEN) 8 mg iron-400 mcg-300 mcg tab Take by mouth. polyethylene glycol 3350 (MIRALAX, GLYCOLAX) 17 gram/dose powder Use as directed for Miralax / Gatorade Bowel Prep Kit Bisacodyl (DULCOLAX) 5 mg tab Use as directed for Miralax / Gatorade Bowel Prep Kit ondansetron (ZOFRAN) 4 mg tablet Take 1 tablet by mouth every 8 hours as needed for nausea/vomiting. glucosamine sulfate (GLUCOSAMINE ORAL) Take by mouth. No current facility-administered medications for this visit. ALLERGIES: ALLERGIES No Known Allergies PAST MEDICAL HISTORY Diagnosis Date Adjustment disorder with depressed mood Anxiety Meniere disease Neuropathy fine nerve (feet) Seasonal affective disorder (HCC) PAST SURGICAL HISTORY Procedure Laterality Date COLONOSCOPY 11/29/2021 repeat in 5 years RHINP PRIM LATANDALAR CRTLGSAND/ELVTN NASAL TI 08/27/1989 Rhinoplasty FAMILY HISTORY Problem Relation Age of Onset Heart Failure Mother Alcohol/Drug Father Cancer Father skin Diabetes Father Colon Cancer Brother 76 Cancer Brother lymphoma Psychiatry Daughter depression Social History Tobacco Use Smoking status: Never Smokeless tobacco: Never Substance Use Topics Alcohol use: Yes Comment: once a week Drug use: No Reviewed current medications, allergies, past medical history, surgical history, family history and social history today. REVIEW OF SYSTEMS No chest pain or shortness of breath. All other reviewed and negative other than HPI. HEALTH MAINTENANCE: Reviewed health maintenance issues today and recommended the following in detail. HIV SCREENING- declined. SHINGRIX VACCINE(1 of 2) Never done COVID-19 VACCINE(4 - Booster for Moderna series) due on 10/22/2021 MAMMOGRAM due on 10/11/2022 VITALS: BP 102/62 Pulse 80 Wt 64 kg (141 lb) LMP 08/23/2015 SpO2 100% BMI 24.67 kg/m? Last 4 Encounter Wt Readings: Date: Wt: 02/28/2022 68.5 kg (151 lb) 01/05/2022 68.9 kg (152 lb) 11/29/2021 67.6 kg (149 lb 0.5 oz) 10/10/2021 67.6 kg (149 lb) PHYSICAL EXAMINATION: General appearance: Well appearing, alert, in no acute distress, well-hydrated, well nourished. Skin: Skin color, texture, turgor normal, no suspicious rashes or lesions Lungs: Lungs clear to auscultation. No wheezing, rhonchi, rales Heart: RRR without murmur, gallop, or rubs. No ectopy Abdomen: Normal abdominal exam, Abdomen soft, non-ten (more content not included)... [facility] 08-01-2022 Miscellaneous Notes Patient has been identified by name and date of : Yes Patient phones for refill(s): Requested Prescriptions Pending Prescriptions Disp Refills citalopram (CELEXA) 40 mg tablet 45 tablet 1 Sig: Take 0.5 tablets by mouth once daily. Date of last office visit in primary care: 02/28/2022 Please advise. Thank you. Barbie Lopez LPN documented in this encounter [facility] 02-28-2022 History of Presen t illness Narrative Patient presents with: Follow Up: 6 month HPI: Patient presents today for office visit for follow up PSYCH: Trouble sleeping - chronic. Patient requesting something for sleep. Patient has tried melatonin - did not tolerate well. Uses homeopathic - aids sleep but still struggles to get to bed regularly. Occasionally uses alprazolam at HS to sleep. Last panic attack more than a year ago. Hx of migraines - chronic. Occurs 2-3 times per month. Migraines on right side. Worsening of headaches - occurs every day. Headaches primarily forehead. Patient taking excedrin OTC for headaches. Stress worsens headaches. Has had chronic headaches for years. Had previously talked about increasing celexa. Declines. Discussed avoiding excedrin round the clock. No new neuro issues. Red flags for re-assessment reviewed with patient in detail. Patient mentions anxiety is much better. Patient tolerating meds well. Patient denies increasing current medications. ENT: Hx of meniere's disease - stable. Patient voices ENT visits are not routine, only as needed. MEDICATIONS: Current Outpatient Medications Medication Sig ALPRAZolam (XANAX) 0.5 mg tablet Take 1 tablet by mouth as needed. polyethylene glycol 3350 (MIRALAX, GLYCOLAX) 17 gram/dose powder Use as directed for Miralax / Gatorade Bowel Prep Kit Bisacodyl (DULCOLAX) 5 mg tab Use as directed for Miralax / Gatorade Bowel Prep Kit ondansetron (ZOFRAN) 4 mg tablet Take 1 tablet by mouth every 8 hours as needed for nausea/vomiting. hydroCHLOROthiazide 12.5 mg capsule Take 12.5 mg by mouth once daily as needed (dizziness per ENT). meclizine (ANTIVERT) 12.5 mg tab Take 1 tablet by mouth three times daily as needed (dizziness). glucosamine sulfate (GLUCOSAMINE ORAL) Take by mouth. bgyexhmo-vtv-kbqb-FA-lutein (CENTRUM SILVER WOMEN) 8 mg iron-400 mcg-300 mcg tab Take by mouth. citalopram (CELEXA) 40 mg tablet Take 0.5 tablets by mouth once daily. No current facility-administered medications for this visit. ALLERGIES: ALLERGIES No Known Allergies PAST MEDICAL HISTORY Diagnosis Date Adjustment disorder with depressed mood Anxiety Meniere disease Neuropathy fine nerve (feet) Seasonal affective disorder (HCC) PAST SURGICAL HISTORY Procedure Laterality Date COLONOSCOPY 11/29/2021 repeat in 5 years RHINP PRIM LAT&ALAR CRTLGS&/ELVTN NASAL TI 08/27/1989 Rhinoplasty FAMILY HISTORY Problem Relation Age of Onset Heart Failure Mother Alcohol/Drug Father Cancer Father skin Diabetes Father Colon Cancer Brother 76 Cancer Brother lymphoma Psychiatry Daughter depression Social History Tobacco Use Smoking status: Never Smoker Smokeless tobacco: Never Used Substance Use Topics Alcohol use: Yes Comment: once a week Drug use: No Reviewed current medications, allergies, past medical history, surgical history, family history and social history today. REVIEW OF SYSTEMS RESPIRATORY: Negative for cough, hemoptysis, wheezing, COPD, dyspnea or shortness of breath CARDIOVASCULAR: Negative for chest pain, leg swelling, hypertension, CHF or palpitations All other reviewed and negative other than HPI. HEALTH MAINTENANCE: Reviewed health maintenance issues today and recommended the following in detail. HIV SCREENING Never done SHINGRIX VACCINE(1 of 2) Discussed with patient COVID-19 VACCINE(4 - Booster for Moderna series) due on 12/25/2021 VITALS: BP 108/78 Pulse 79 Resp 16 Wt 68.5 kg (151 lb) LMP 08/23/2015 SpO2 98% BMI 26.42 kg/m Last 4 Encounter Wt Readings: Date: Wt: 02/28/2022 68.5 kg (151 lb) 01/05/2022 68.9 kg (152 lb) 11/29/2021 67.6 kg (149 lb 0.5 oz) 10/10/2021 67.6 kg (149 lb) PHYSICAL EXAMINATION: General appearance: Well appearing, alert, in no acute distress, well-hydrated, well nourished. Skin: Skin color, texture, turgor normal, no suspicious rashes or lesions Head: Normocephalic, no masses, lesions, tenderness or abnormalities Neck: Supple, no adenopathy; thyroid symmetric, normal size, no bruits Back: Normal exam Lungs: Lungs clear to auscultation. No wheezing, rhonchi, rales Heart: RRR without murmur, gallop, or rubs. No ectopy Abdomen: Normal abdominal exam, Abdomen soft, non-tender. Bowel sounds normal. No masses, organomegaly Extremities: No deformities, edema, skin discoloration, clubbing or cyanosis. Good capillary refill. Musculoskeletal: No joint swelling, deformity, or tenderness Peripheral pulses: Normal Neuro: Gait normal. Reflexes normal and symmetric. Sensation grossly intact. ASSESSMENT/PLAN: 1. Depression with anxiety - ICD9: 300.4, ICD10: F41.8 - continue current meds. Call if any issues. oarrs done. No hx of misuse or abuse. - CITALOPRAM 40 MG TABLET Tony Rey RTO in six month and prn. documented in this encounter [facility] 01-05-2022 Instructions Kylee Amanda APRN.CNP - 01/05/2022 12:37 PM EDT Appointment today at [facility] with ENT Follow up with ENT as needed. documented in this encounter [facility] 01-05-2022 History of Presen t illness Narrative This note was created using [employer]. Subjective Debora Sena is a 56 year old female. HPI Debora Sena is a 56 year old female who presents today for CC of blood in ear canal of left ear. States that during the night she felt a pop and then woke up noted blood in left ear. She denies using any qtips for the past few days. She denies and headache, mastoid tenderness. BP 122/68 Pulse 74 Temp 37.1 C (98.7 F) Resp 16 Wt 68.9 kg (152 lb) LMP 08/23/2015 SpO2 98% BMI 26.60 kg/m Social History Tobacco Use Smoking status: Never Smoker Smokeless tobacco: Never Used Substance Use Topics Alcohol use: Yes Comment: once a week Drug use: No PAST MEDICAL HISTORY Diagnosis Date Adjustment disorder with depressed mood Anxiety Meniere disease Neuropathy fine nerve (feet) Seasonal affective disorder (HCC) I have confirmed and edited as necessary, the [facility] Review of Systems Constitutional: Negative for fever. HENT: Negative for ear discharge, ear pain, rhinorrhea, sinus pain and sore throat. Bleeding left ear Musculoskeletal: Negative for myalgias. Objective BP 122/68 Pulse 74 Temp 37.1 C (98.7 F) Resp 16 Wt 68.9 kg (152 lb) LMP 08/23/2015 SpO2 98% BMI 26.60 kg/m Physical Exam Vitals and nursing note reviewed. Constitutional: Appearance: She is not ill-appearing or toxic-appearing. HENT: Right Ear: Tympanic membrane, ear canal and external ear normal. Left Ear: Tympanic membrane and ear canal normal. Ears: Comments: Small clot removed from left ear, TM intact, no sign of source of bleeding. Nose: Nose normal. Mouth/Throat: Lips: [place]. Tongue: No lesions. Pharynx: Oropharynx is clear. Uvula midline. Cardiovascular: Rate and Rhythm: Normal rate and regular rhythm. Heart sounds: Normal heart sounds. Pulmonary: Effort: Pulmonary effort is normal. Breath sounds: Normal breath sounds. Neurological: Mental Status: She is alert. ASSESSMENT/PLAN: 1. Blood in left ear canal - ICD9: 388.69, ICD10: H92.22 No sign of source, TM intact Will set up follow up with ENT for further evaluation and check Diagnosis and treatment plan were discussed and questions were answered to the patient's satisfaction. Pt acknowledged understanding of concepts and follow up plan. Specific signs and symptoms that would indicate the need for higher level of care were discussed in detail warranting prompt ER evaluation. Kylee Amanda APRN.BEBO documented in this encounter [facility] 01-05-2022 Miscellaneous Notes Patient calls to report left ear pain, pressure/congestion, and dried bloody drainage to ear/pillow upon waking this am. Nurse triage completed. Protocol recommends see PCP within 24 hours. Patient reports she will go to to be evaluated. Care advice reviewed with understanding verbalized. Reason for Disposition Ear pain Answer Assessment - Initial Assessment Questions 1. LOCATION: Left ear 2. COLOR: Woke up with some dried blood to ear and pillow case 3. CONSISTENCY: Dried blood 4. ONSET: this morning 5. PAIN: 12/04 6. OBJECTS: No 7. OTHER SYMPTOMS: No headache, fever, dizziness, vomiting, or runny nose. Ear pain and congestion. Protocols used: EAR - [id number] documented in this encounter [facility] 12-05-2021 Miscellaneous Notes Instructions sent to patient via on colonoscopy results/instructions. Candace West RN documented in this encounter [facility] 12-05-2021 Miscellaneous Notes LEFT MESSAGE FOR PATIENT TO CALL OFFICE. Recall letter in [facility] and health maintenance has been updated. Please call patient and inform her results of colonoscopy normal - no specimens, findings of diverticulosis in the sigmoid colon - I recommend high fiber diet 25-30g she can also start supplement - Drink around 64 oz water daily - Benefiber daily: 2 teaspoons added to 8 ounces of water up to 3 times daily. - Please place patient on 5 year surveillance - FDR colon cancer Thanks Gabrielle Cantor APRN.BEBO documented in this encounter [facility] 11-29-[address] Avelar here to review results of procedure with patient. Pt reports she still has a slight frontal headache, had pre procedure. Lights down, will continue to rest for now. Arrives in PACU, abdomen soft, non distended, denies abdominal pain or nausea [facility]OP NURSING HAND OFF NOTE SBAR Hand off given to Jerad Figueroa RN. Hand off was communicated verbally and at the patient's bedside and all questions were answered. Mindi Moore RN documented in this encounter [facility] 11-29-2021 History and physical note UPDATED PROCEDURAL SEDATION HISTORY AND PHYSICAL EXAMINATION SERVICE DATE: 11/29/2021 SERVICE TIME: 1:14 PM PHYSICAL EXAM MUST BE COMPLETED ON ADMISSION PROCEDURE: Procedure Indications: The History and Physical (completed in the past 30 days) has been reviewed and the patient has been examined. The contents accurately reflect the patient's condition with the following additions or revisions since the H&P was completed. ASA Class: ASA Class:: Patient with severe systemic disease Examination indicates no changes. AIRWAY: Airway Visualization of Uvula: Yes Mouth opening greater than 2 fingerbreadths: Yes Neck Full Range of Motion: Yes LUNGS: Lungs clear to auscultation CARDIAC: Regular rhythm,Regular rate Provisional Diagnosis/Treatment Plan: family history of colon cancer - colonoscopy SEDATION GOAL: Moderate This H&P can be found in the attached. SIGNATURE: Willie Avelar MD PATIENT NAME: Debora Sena DATE: November 29, 2021 TIME: 1:14 PM CHIEF COMPLAINT: Patient presents with: Outpatient Colonoscopy: denies any problems with bowels, This consult was requested by Tony Rey MD for an opinion regarding colonoscopy screening. My final recommendations will be communicated to the requesting health care provider by way of the shared medical record for internal providers or letter via the [employer] for external providers. Debora Sena is a 56 year old female with a past medical history anxiety, M ni re's disease, neuropathy, seasonal affective disorder, adjustment disorder with depression. Patient reports family history brother diagnosed with colon cancer in his 60s . who presents for colon cancer screening HPI: She reports never had colonoscopy, she is nervous about the prep possibly exacerbating her meniere disease. The patient denies change in bowel habits, denies black stool, rectal bleeding or abdominal pain. Having a formed bowel movement daily Denies upper GI complaints Record Review: [facility] / Outside records reviewed. Component Latest Ref Rng & Units 06/16/2020 09/08/2021 WBC 3.70 - 11.00 k/uL 6.18 RBC 3.90 - 5.20 m/uL 4.85 Hemoglobin 11.5 - 15.5 g/dL 14.6 Hematocrit 36.0 - 46.0 % 45.5 MCV 80.0 - 100.0 fL 93.8 MCH 26.0 - 34.0 pG 30.1 MCHC 30.5 - 36.0 g/dL 32.1 RDW-CV 11.5 - 15.0 % 14.0 Platelet Count 150 - 400 k/uL 286 MPV 9.0 - 12.7 fL 9.6 Neut% % 51.4 Abs Neut (ANC) 1.45 - 7.50 k/uL 3.16 Lymph% % 34.3 Abs Lymph 1.00 - 4.00 k/uL 2.12 Morris% % 8.4 Abs Morris <0.87 k/uL 0.52 Eosin% % 5.3 Abs Eosin <0.46 k/uL 0.33 Baso% % 0.6 Abs Baso <0.11 k/uL 0.04 Nucleated Reds 0 /100 WBC 0.0 Absolute nRBC <0.01 k/uL <0.01 Diff Type Auto Diff Protein, Total 6.3 - 8.0 g/dL 7.1 Albumin 3.9 - 4.9 g/dL 4.5 Calcium 8.5 - 10.2 mg/dL 10.2 Bilirubin, Total 0.2 - 1.3 mg/dL 0.4 Alkaline Phosphatase 34 - 123 U/L 107 AST 13 - 35 U/L 18 Glucose 74 - 99 mg/dL 84 BUN 7 - 21 mg/dL 16 Creatinine 0.58 - 0.96 mg/dL 0.83 Sodium 136 - 144 mmol/L 141 Potassium 3.7 - 5.1 mmol/L 4.1 Chloride 97 - 105 mmol/L 101 CO2 22 - 30 mmol/L 30 Anion Gap 9 - 18 mmol/L 10 ALT 7 - 38 U/L 15 eGFR- >60 eGFR-All Other Races . >60 WSR 0 - 20 mm/hr 2 TSH 0.270 - 4.200 uU/mL 1.620 PAST MEDICAL HISTORY PAST MEDICAL HISTORY Diagnosis Date Adjustment disorder with depressed mood Anxiety Meniere disease Neuropathy fine nerve (feet) Seasonal affective disorder (HCC) PAST SURGICAL HISTORY PAST SURGICAL HISTORY Procedure Laterality Date RHINP PRIM LAT&ALAR CRTLGS&/ELVTN NASAL TI 90 Rhinoplasty Allergies: ALLERGIES ALLERGIES No Known Allergies Medications: CURRENT MEDICATIONS ALPRAZolam (XANAX) 0.5 mg tablet Take 1 tablet by mouth as needed. hydroCHLOROthiazide 12.5 mg capsule Take 12.5 mg by mouth once daily as needed (dizziness per ENT). citalopram (CELEXA) 40 mg tablet Take 0.5 tablets by mouth once daily. meclizine (ANTIVERT) 12.5 mg tab Take 1 tablet by mouth three times daily as needed (dizziness). glucosamine sulfate (GLUCOSAMINE ORAL) Take by mouth. dgegpgll-chw-kjml-FA-lutein (CENTRUM SILVER WOMEN) 8 mg iron-400 mcg-300 mcg tab Take by mouth. polyethylene glycol 3350 (MIRALAX, GLYCOLAX) 17 gram/dose powder Use as directed for Miralax / Gatorade Bowel Prep Kit Bisacodyl (DULCOLAX) 5 mg tab Use as directed for Miralax / Gatorade Bowel Prep Kit ondansetron (ZOFRAN) 4 mg tablet Take 1 tablet by mouth every 8 hours as needed for nausea/vomiting. 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 Are you taking any blood thinners? No Physical Examination: BP 100/66 Pulse 81 Ht 5' 3.386 (1.61m) Wt 149 lb (67.6kg) SpO2 99% LMP 08/23/2015 BMI 26.07 kg/(m^2). Physical Exam ASSESSMENT: Screening for colon cancer Family history of colon cancer (primary encounter diagnosis) PLAN: Assessment/Plan (Z80.0) Family history of colon cancer (primary encounter diagnosis) (Z12.11) Screening for colon cancer 1. Screening for colon cancer - Patient denies upper and lower GI complaints at this time. She reports brother diagnosed with colon cancer. Patient anxious about colonoscopy and prep she has a history of M ni re's disease and is worried the prep is going to exacerbate M ni re's. Advised her to premedicate stay hydrated I did order Zofran for the day of prep preventatively for nausea. Discussed with patient would ideally like her to have procedure with MAC sedation due to anxiety. Patient does not want to have procedure outside [facility]. She reports if she develops M ni re's symptoms the car ride will exacerbate symptoms and make things worse. Discussed with patient in detail moderate sedation versus MAC sedation. If patient chooses moderate sedation and unable to tolerate the procedure possibility of running the risk of aborting procedure and needing to repeat colonoscopy. At this time patient still wants procedure done at [facility]. Would like to have Dr. Avelar he did her 's procedure - CONSULT TO GENERAL SURGERY - polyethylene glycol 3350 (MIRALAX, GLYCOLAX) 17 gram/dose powder; Use as directed for Miralax / Gatorade Bowel Prep Kit Dispense: 238 g; Refill: 0 - Bisacodyl (DULCOLAX) 5 mg tab; Use as directed for Miralax / Gatorade Bowel Prep Kit Dispense: 4 tablet; Refill: 0 - COLONOSCOPY SCREENING 2. Family history of colon cancer - COLONOSCOPY SCREENING Follow up in office 3 months/PRN. Recommended to please call office/go to ER if fever, chills, chest pain, SOB, diarrhea, nausea, emesis, worsening abdominal pain, dehydration occurs I spent 30 minutes in the visit, with more than 50% of the total [id number] time of the visit in counseling / coordination of care. I have confirmed and edited as necessary, the PFSH and ROS obtained by others. Gabrielle Cantor APRN.BEBO October 10, 2021 3:59 PM Gabrielle Cantor APRN.ART EDUCATION PROFESSOR DATE: 10/10/21 TIME: 1:02 PM documented in this encounter [facility] 10-10-2021 Miscellaneous Notes Patient is scheduled at [facility] on 11/29/[address] Avelar for a colonoscopy. DX: Screening for colon cancer [Z12.11] Family history of colon cancer [Z80.0] Verbal and written instructions given. documented in this encounter [facility] 01-13-2021 Miscellaneous Notes Patient anxiety increased in last 3 weeks. Scheduled same day VV with pcp. Reason for Disposition Symptoms interfere with work or school Answer Assessment - Initial Assessment Questions 1. CONCERN: Having anxiety. Started having diarrhea yesterday. Also nausea and tired. 2. ANXIETY SYMPTOM SCREENING: Work related anxiety- trouble sleeping, feeling of hopelessness, going on for 7 mths. Had FMLA last year for a month, this year 2 weeks for anxiety. Has FMLA for 1 year now. Her job is very stressful: many changes. Did not get promotion twice and she has worked 10 years for that promotion. Got 2nd moderna on 12-22-20-side effects lasted 10 days and seemed trigger anxiety she is having now. 3. ONSET: About 3 weeks. 4. RECURRENT Does take medication for anxiety and depression. Takes xanax only when all else fails. 5. RISK OF HARM - SUICIDAL IDEATION: No 6. RISK OF HARM - HOMICIDAL IDEATION: No 7. FUNCTIONAL IMPAIRMENT Feeling depressed despite taking citalopram 20 mg daily. Disappointments at work. 8. SUPPORT: Lives with and daughter, and they are supportive. 9. THERAPIST: Was doing counseling through [facility]- did not help. 10. STRESSORS: Work is more stressful- many changes 11. CAFFEINE ABUSE: Very little coffee in morning. 12. SUBSTANCE ABUSE: No 13. OTHER SYMPTOMS Diarrhea/nausea. 14. : No Protocols used: ANXIETY AND PANIC [id number] documented in this encounter [facility] documented as of this encounter (statuses as of 11/30/2021) [address] History of Past illness Narrative* Problem Noted Date Resolved Date Encounter for screening colonoscopy 11/26/2014 09/27/2016 documented as of this encounter (statuses as of 12/02/2021) [address] History of Past illness Narrative* Problem Noted Date Resolved Date Encounter for screening colonoscopy 11/26/2014 09/27/2016 documented as of this encounter (statuses as of 12/05/2021) [address] History of Past illness Narrative* Problem Noted Date Resolved Date Encounter for screening colonoscopy 11/26/2014 09/27/2016 documented as of this encounter (statuses as of 12/05/2021) [address] History of Past illness Narrative* Problem Noted Date Resolved Date Encounter for screening colonoscopy 11/26/2014 09/27/2016 documented as of this encounter (statuses as of 12/15/2021) [address] History of Past illness Narrative* Problem Noted Date Resolved Date Encounter for screening colonoscopy 11/26/2014 09/27/2016 documented as of this encounter (statuses as of 01/05/2022) [address] History of Past illness Narrative* Problem Noted Date Resolved Date Encounter for screening colonoscopy 11/26/2014 09/27/2016 documented as of this encounter (statuses as of 01/05/2022) [address] History of Past illness Narrative* Problem Noted Date Resolved Date Encounter for screening colonoscopy 11/26/2014 09/27/2016 documented as of this encounter (statuses as of 02/28/2022) [address] History of Past illness Narrative* Problem Noted Date Resolved Date Encounter for screening colonoscopy 11/26/2014 09/27/2016 documented as of this encounter (statuses as of 08/01/2022) [address] History of Past illness Narrative* Problem Noted Date Resolved Date Encounter for screening colonoscopy 11/26/2014 09/27/2016 documented as of this encounter (statuses as of 10/30/2022) [address] History of Past illness Narrative* Problem Noted Date Resolved Date Encounter for screening colonoscopy 11/26/2014 09/27/2016 documented as of this encounter (statuses as of 11/01/2022) [address] History of Past illness Narrative* Problem Noted Date Resolved Date Encounter for screening colonoscopy 11/26/2014 09/27/2016 documented as of this encounter (statuses as of 11/02/2022) [address] History of Past illness Narrative* Problem Noted Date Resolved Date Encounter for screening colonoscopy 11/26/2014 09/27/2016 documented as of this encounter (statuses as of 11/27/2022) [address] History of Past illness Narrative* Problem Noted Date Resolved Date Encounter for screening colonoscopy 11/26/2014 09/27/2016 documented as of this encounter (statuses as of 03/02/2023) [address] History of Past illness Narrative* Problem Noted Date Diagnosed Date Resolved Date Encounter for screening colonoscopy 11/26/2014 09/27/2016 documented as of this encounter (statuses as of 04/06/2023) [address] History of Past illness Narrative* Problem Noted Date Diagnosed Date Resolved Date Encounter for screening colonoscopy 11/26/2014 09/27/2016 documented as of this encounter (statuses as of 07/01/2023) [facility] Diagnosis Blood in left ear canal- Primary [facility] Diagnosis Depression with anxiety Dysthymic disorder Meniere's disease, unspecified laterality [facility] Diagnosis Depression with anxiety Dysthymic disorder [facility] Diagnosis Encounter for gynecological examination (general) (routine) without abnormal findings- Primary Screening for cervical cancer Screening for malignant neoplasm of the cervix Encounter for screening for human papillomavirus (HPV) Special screening examination for human papillomavirus (HPV) Pap smear for cervical cancer screening Screening for malignant neoplasm of the cervix Encounter for screening mammogram for breast cancer Dense breast Inconclusive mammogram [facility] Diagnosis Abnormal mammogram- Primary Abnormal mammogram, unspecified [facility] Diagnosis Depression with anxiety Dysthymic disorder [facility] Diagnosis Depression with anxiety- Primary Dysthymic disorder Meniere's disease, unspecified laterality Other migraine without status migrainosus, intractable Mixed hyperlipidemia [facility] Diagnosis Screening breast examination Breast screening, unspecified documented in this encounter [facility] for referral (narrative)* Diagnostic Procedure Only (Routine) - Authorized Specialty Diagnoses / Procedures Referred By Rebecca correa Referred To Contact [facility] Diagnoses Encounter for screening mammogram for breast cancer Dense breast Procedures LAI SCREENING W MIREILLE SCREENING DIGITAL BREAST TOMOSYNTHESIS BI SCREENING MAMMOGRAPHY BI 2-VIEW BREAST INC CAD Luke Martel MD [address] [place] [address] [facility] [address] [place] [address] Referral ID Status Reason Start Date Expiration Date Visits Requested Visits Authorized [id number] Authorized Auto-Generat ed Referral 10/30/2022 11/29/2023 1 1 [facility] for referral (narrative)* Diagnostic Procedure Only (Routine) - Pending Review Specialty Diagnoses / Procedures Referred By Rebecca correa Referred To Contact [facility] Diagnoses Abnormal mammogram Procedures US BREAST LTD RT US BREAST UNI REAL TIME WITH IMAGE LIMITED Tony Rey MD [address] [place] [address] [facility] [address] [place] [address] Referral ID Status Reason Start Date Expiration Date Visits Requested Visits Authorized [id number] Pending Review Auto-Generat ed Referral 10/31/2022 11/30/2023 1 1 * Diagnostic Procedure Only (Routine) - Pending Review Specialty Diagnoses / Procedures Referred By Rebecca correa Referred To Contact [facility] Diagnoses Abnormal mammogram Procedures LAI DIAGNOSTIC LT DIAGNOSTIC MAMMOGRAPHY COMPUTER-[place] [address] [place] [address] [facility] [address] [place] [address] Referral ID Status Reason Start Date Expiration Date Visits Requested Visits Authorized [id number] Pending Review Auto-Generat ed Referral 10/31/2022 11/30/2023 1 1 [facility] for referral (narrative)* Diagnostic Procedure Only (Routine) - Closed Specialty Diagnoses / Procedures Referred By Contac t Referred To Contact [facility] Diagnoses Screening breast examination Procedures LAI SCREENING SCREENING MAMMOGRAPHY BI 2-VIEW BREAST INC Tony Pinto MD [address] [place] [address] [facility] [address] [place] [address] Referral ID Status Reason Start Date Expiration Date V isits Requested Visits Authorized [id number] Closed Auto-Generate d Referral 10/06/2022 11/05/2023 1 1 [facility] for visit Narrative* Outpatient Procedure (Routine) - Closed Specialty Diagnoses / Procedures Referred By Contac t Referred To Contact [facility] Diagnoses Screening for colon cancer Family history of colon cancer Procedures COLONOSCOPY SCREENING COLONOSCOPY SCREENING COLONOSCOPY FLX DX W/COLLJ SPEC WHEN PFRMD COLONOSCOPY FLX DX W/COLLJ SPEC WHEN PFRMD Gabrielle Cantor APRN.[facility] [address] [place] [address] [facility] [place] [address] [place] [address] Referral ID Status Reason Start Date Expiration Date V isits Requested Visits Authorized [id number] Closed Auto-Generate d Referral 11/29/2021 10/10/2022 1 1 [facility] for visit Narrative* Diagnostic Procedure Only (Routine) - Closed Specialty Diagnoses / Procedures Referred By Contac t Referred To Contact [facility] Diagnoses Screening breast examination Procedures LAI SCREENING SCREENING MAMMOGRAPHY BI 2-VIEW BREAST INC Tony Pinto MD [address] [place] [address] [facility] [address] [place] [address] Referral ID Status Reason Start Date Expiration Date V isits Requested Visits Authorized [id number] Closed Auto-Generate d Referral 10/06/2022 11/05/2023 1 1 [facility] Medications Administered Section Inactive Administered Medications - up to 3 most recent administrations Medication Order MAR Action Action Date Dose Rate Site fentaNYL 50 mcg/mL 25-100 mcg injection (SUBLIMAZE) 25-100 mcg, INTRAVENOUS, DIRECTED, Starting on Sun11/29/21 at 1400, Until Sun11/29/21 at 1759, DOSING DIRECTED BY PHYSICIAN FOR PROCEDURAL SEDATION ONLY, Intraprocedure Given 11/29/2021 1:37 PM EDT 25 mcg Advance Directives Documents on File Type Date Recorded Patient Senior Category Manager Expl anation Advance Directive(s) 11/29/2021 12:00 PM Documents on File Type Date Recorded Patient Senior Category Manager Expl anation Advance Directive(s) 11/29/2021 12:00 PM Summary Purpose Family History No Family History Records Found Additional Source Comments Source Comments (unrecognize d section and content) In the event this informatio n is protected by the Federal Confidentiality of Alcohol and Drug Abuse Patient Records regulations: The Federal rules restrict any use of the information to criminally investigate or prosecute any alcohol or drug abuse patient.[facility] the event this information is protected by the Federal Confidentiality of Alcohol and Drug Abuse Patient Records regulations: The Federal rules restrict any use of the information to criminally investigate or prosecute any alcohol or drug abuse patient.[facility] the event this information is protected by the Federal Confidentiality of Alcohol and Drug Abuse Patient Records regulations: The Federal rules restrict any use of the information to criminally investigate or prosecute any alcohol or drug abuse patient.[facility] the event this information is protected by the Federal Confidentiality of Alcohol and Drug Abuse Patient Records regulations: The Federal rules restrict any use of the information to criminally investigate or prosecute any alcohol or drug abuse patient.[facility] the event this information is protected by the Federal Confidentiality of Alcohol and Drug Abuse Patient Records regulations: The Federal rules restrict any use of the information to criminally investigate or prosecute any alcohol or drug abuse patient.[facility] the event this information is protected by the Federal Confidentiality of Alcohol and Drug Abuse Patient Records regulations: The Federal rules restrict any use of the information to criminally investigate or prosecute any alcohol or drug abuse patient.[facility] the event this information is protected by the Federal Confidentiality of Alcohol and Drug Abuse Patient Records regulations: The Federal rules restrict any use of the information to criminally investigate or prosecute any alcohol or drug abuse patient.[facility] the event this information is protected by the Federal Confidentiality of Alcohol and Drug Abuse Patient Records regulations: The Federal rules restrict any use of the information to criminally investigate or prosecute any alcohol or drug abuse patient.[facility] the event this information is protected by the Federal Confidentiality of Alcohol and Drug Abuse Patient Records regulations: The Federal rules restrict any use of the information to criminally investigate or prosecute any alcohol or drug abuse patient.[facility] the event this information is protected by the Federal Confidentiality of Alcohol and Drug Abuse Patient Records regulations: The Federal rules restrict any use of the information to criminally investigate or prosecute any alcohol or drug abuse patient.[facility] the event this information is protected by the Federal Confidentiality of Alcohol and Drug Abuse Patient Records regulations: The Federal rules restrict any use of the information to criminally investigate or prosecute any alcohol or drug abuse patient.[facility] the event this information is protected by the Federal Confidentiality of Alcohol and Drug Abuse Patient Records regulations: The Federal rules restrict any use of the information to criminally investigate or prosecute any alcohol or drug abuse patient.[facility] the event this information is protected by the Federal Confidentiality of Alcohol and Drug Abuse Patient Records regulations: The Federal rules restrict any use of the information to criminally investigate or prosecute any alcohol or drug abuse patient.[facility] the event this information is protected by the Federal Confidentiality of Alcohol and Drug Abuse Patient Records regulations: The Federal rules restrict any use of the information to criminally investigate or prosecute any alcohol or drug abuse patient.[facility] System[facility] the event this information is protected by the Federal Confidentiality of Alcohol and Drug Abuse Patient Records regulations: The Federal rules restrict any use of the information to criminally investigate or prosecute any alcohol or drug abuse patient.[facility] System[facility] the event this information is protected by the Federal Confidentiality of Alcohol and Drug Abuse Patient Records regulations: The Federal rules restrict any use of the information to criminally investigate or prosecute any alcohol or drug abuse patient.[facility] Care Teams (unrecognized sec tion and content) Sales Recruiting Coordinator Relationship Specialty Start Date End Date Tony Rey MD [address] [place] [address] PCP - General Family Practice 12/08/15 Sales Recruiting Coordinator Relationship Specialty Start Date End Date Tony Rey MD [address] [place] [address] PCP - General Family Practice 12/08/15 Sales Recruiting Coordinator Relationship Specialty Start Date End Date Tony Rey MD [address] [place] [address] PCP - General Family Practice 12/08/15 Sales Recruiting Coordinator Relationship Specialty Start Date End Date Tony Rey MD [address] [place], [place] [id number] PCP - General Family Practice 12/08/15 Sales Recruiting Coordinator Relationship Specialty Start Date End Date Tony Rey MD [address] [place] [place] [address] PCP - General Family Practice 12/08/15 Sales Recruiting Coordinator Relationship Specialty Start Date End Date Tony Rey MD [address] [place] [place] [address] PCP - General Family Practice 12/08/15 Sales Recruiting Coordinator Relationship Specialty Start Date End Date Tony Rey MD [address] [place] [address] PCP - General Family Medicine 12/08/15 Sales Recruiting Coordinator Relationship Specialty Start Date End Date Tony Rey MD [address] [place] [address] PCP - General Family Medicine 12/08/15 Sales Recruiting Coordinator Relationship Specialty Start Date End Date Tony Rey MD [address] [place] [address] PCP - General Family Medicine 12/08/15 Sales Recruiting Coordinator Relationship Specialty Start Date End Date Tony Rey MD [address] [place] [address] PCP - General Family Medicine 12/08/15 Sales Recruiting Coordinator Relationship Specialty Start Date End Date Tony Rey MD [address] [place] [address] PCP - General Family Medicine 12/08/15 Sales Recruiting Coordinator Relationship Specialty Start Date End Date Tony Rey MD [address] [place] [address] PCP - General Family Medicine 12/08/15 Sales Recruiting Coordinator Relationship Specialty Start Date End Date Tony Rey MD [address] [place] [address] PCP - General Family Medicine 12/08/15 Sales Recruiting Coordinator Relationship Specialty Start Date End Date Tony Rey MD [address] [place], [place] [id number] PCP - General Family Medicine 12/08/15 Reason for Visit (unrecogniz ed section and content) Reason Comments Results Reason Onset Date Comments Anxiety 01/13/2021 Reason Comments Pain In Ear(s) Reason Comments Ear Problem left ear bleeding x this am Reason Comments Follow Up 6 month Reason Onset Date Comments Refill Request 08/01/2022 Reason Comments Yearly Exam With Mammogram Specialty Diagnoses / Procedures Referred By Rebecca correa Referred To Contact Gynecology Diagnoses Screening for cervical cancer Procedures CONSULT TO GYNECOLOGY OFFICE/OUTPATIENT [facility] 60-74 MINUTES Tony Rey MD [address] [place] [address] Referral ID Status Reason Start Date Expiration Date Visits Requested Visits Authorized [id number] Pending Review PCP Requested Referral Auto-Generate d Referral 10/06/2022 10/06/2023 1 1 Reason Comments Results Reason Comments 6 Month Exam INFORMATION SOURCE (unrecogn ized section and content) FOR RECORDS PERTAINING TO PATIENTS WHO ARE OR HAVE BEEN ENROLLED IN A CHEMICAL DEPENDENCY/SUBSTANCEABUSE PROGRAM, SOME INFORMATION MAY BE OMITTED. This clinical summary was aggregated from multiple sources. Caution should be exercised in using it in the provision of clinical care. This summary normalizes information from multiple sources, and as a consequence, information in this document may materially change the coding, format and clinical context of patient data. In addition, data may be omitted in some cases. CLINICAL DECISIONS SHOULD BE BASED ON THE PRIMARY CLINICAL RECORDS. [employer] provides no warranty or guarantee of the accuracy or completeness of information in this document.
[2023-09-12 17:13] LABS: Absolute Lymphocyte Count 2.37 X10^3/uL (0.83-4.51); Absolute Neutrophil Count 4.1 X10^3/uL (2.0-7.7); Basophil# 0.04 X10^3/uL; Basophil% 0.5 % (0-1); Eosinophils% 2.7 % (0-5); Hematocrit 43.1 % (37-47); Hemoglobin 13.8 g/dL (12.0-15.0); Lymphocyte # 2.37 X10^3/ul (0.83-4.51); Lymphocyte % 32.4 % (19-41); Mean Corpuscular Hgb 30.1 pg (27.0-32.0); Mean Corpuscular Volume 93.9 fL (81-99); Mean Platelet Vol. 9.9 fl (6.2-12.0); Monocyte# 0.56 X10^3/uL; Monocyte% 7.7 % (0-10); NRBC Flagged by Analyzer 0 % (0-5); Neutrophil # 4.11 X10^3/uL (2.7-7.7); Neutrophil % 56.3 % (47-70); Platelet Count 277 K/mm3 (150-450); RBC Distribution Width CV 14.1 % (11.6-14.6); RBC Distribution Width SD 48.6 fl (35.1-43.9); Red Blood Count 4.59 M/mm3 (4.2-5.4); White Blood Count 7.3 K/mm3 (4.4-11.0)
[2023-09-12 17:38] LABS: ALB/GLOB Ratio 1.1 RATIO (0.9-2.4); AST(SGOT) 16 U/L (15-37); Alanine Aminotransfer ALT/SGPT 20 U/L (13-56); Albumin, Serum 3.8 g/dL (3.2-5.0); Alkaline Phosphatase 98 U/L (45-117); Anion Gap 5 (5-15); BUN 15 mg/dL (7-18); BUN/Creat Ratio 17.9 RATIO (10-20); Calcium,Total 9.4 mg/dL (8.5-10.1); Chloride 103 mmol/L (98-107); Cholesterol 251 mg/dL (200); Creatinine, Serum 0.84 mg/dL (0.55-1.02); EST Glomerular Filtration Rate 73 mL/min (>60); Est Glom Filt Rate - Afr Amer 89 mL/min (>60); Globulin 3.4 g/dL (2.2-4.2); Glucose 101 mg/dL (74-106); High Density Lipoprotein 80 mg/dL; Potassium 3.9 mmol/L (3.5-5.1); Protein, Total 7.2 g/dL (6.4-8.2); Sodium Level 138 mmol/L (136-145); Triglycerides 133 mg/dL; Very Low Density Lipoprotein 27 mg/dL (5-40)
[2023-09-12 18:05] LABS: Hepatitis C Antibody Non-Reactive (Nonreactive)
== END | disposition home or self-care (01) ==
LOC: POLAB3 15:44
PROVIDERS: PCP Family Medicine; Visit Provider Family Medicine Geriatric Medicine
DX: E78.5 Hyperlipidemia, unspecified (principal); R53.83 Other fatigue
CPT/HCPCS: 36415; 80053; 80061; 82306; 84443; 85025; 86803

== ENCOUNTER → 2023-10-08 | Outpatient (CLI) | payer OTHER, SELFPAY ==
[2023-10-08 17:52] LABS: Absolute Lymphocyte Count 1.77 X10^3/uL (0.83-4.51); Absolute Neutrophil Count 2.2 X10^3/uL (2.0-7.7); Basophil# 0.02 X10^3/uL; Basophil% 0.4 % (0-1); Eosinophils% 2.1 % (0-5); Hematocrit 42.2 % (37-47); Hemoglobin 13.3 g/dL (12.0-15.0); Lymphocyte # 1.77 X10^3/ul (0.83-4.51); Lymphocyte % 36.7 % (19-41); Mean Corp Hgb Conc 31.5 g/dL (32-36); Mean Corpuscular Hgb 29.6 pg (27.0-32.0); Mean Platelet Vol. 9.8 fl (6.2-12.0); Monocyte# 0.71 X10^3/uL; Monocyte% 14.7 % (0-10); NRBC Flagged by Analyzer 0 % (0-5); Neutrophil # 2.21 X10^3/uL (2.7-7.7); Neutrophil % 45.9 % (47-70); Platelet Count 279 K/mm3 (150-450); RBC Distribution Width CV 13.5 % (11.6-14.6); RBC Distribution Width SD 46.7 fl (35.1-43.9); Red Blood Count 4.49 M/mm3 (4.2-5.4); White Blood Count 4.8 K/mm3 (4.4-11.0)
[2023-10-08 18:23] LABS: ALB/GLOB Ratio 1.1 RATIO (0.9-2.4); AST(SGOT) 11 U/L (15-37); Alanine Aminotransfer ALT/SGPT 21 U/L (13-56); Albumin, Serum 3.6 g/dL (3.2-5.0); Alkaline Phosphatase 107 U/L (45-117); Anion Gap 6 (5-15); BUN 15 mg/dL (7-18); BUN/Creat Ratio 19.2 RATIO (10-20); Calcium,Total 9.4 mg/dL (8.5-10.1); Chloride 103 mmol/L (98-107); Creatinine, Serum 0.78 mg/dL (0.55-1.02); EST Glomerular Filtration Rate 80 mL/min (>60); Est Glom Filt Rate - Afr Amer 96 mL/min (>60); Globulin 3.4 g/dL (2.2-4.2); Glucose 93 mg/dL (74-106); Potassium 3.8 mmol/L (3.5-5.1); Sodium Level 139 mmol/L (136-145)
== END | disposition home or self-care (01) ==
LOC: POLAB3 14:30
PROVIDERS: PCP Family Medicine; Visit Provider Family Medicine Geriatric Medicine
DX: R10.9 Unspecified abdominal pain (principal); R19.7 Diarrhea, unspecified; R53.83 Other fatigue
CPT/HCPCS: 36415; 80053; 85025

== ENCOUNTER 2024-03-16 10:30 | Emergency (ER) | payer OTHER, SELFPAY ==
[2024-03-16 10:30] VITALS: BP 116/69; PULSE 77; RESP 14; TEMP 36.1; O2SAT 98; BMI 26.2
--- NOTE | 2024-03-16 10:55 | RAD_ITS ---
STUDY: X-RAY - LEFT HAND REASON FOR EXAM: Female, 58 years old. Fifth finger laceration TECHNIQUE: 3 view(s) of the hand. COMPARISON: None. FINDINGS: There is no evidence of fracture or dislocation. There are no significant degenerative changes. There are no radiodense foreign bodies. There is soft tissue swelling noted overlying the proximal aspect of the left fifth finger. RAD/Hand Min 3 Views IMPRESSION: No fracture or dislocation in the left hand. No radiodense foreign body. Soft tissue swelling overlying the proximal aspect of the left fifth finger. Electronically Signed: Gregorio Carlin MD at 11:26 EDT ,
--- NOTE | 2024-03-16 11:01 | EDS_ITS ---
HPI History of Present Illness Chief Complaint: Laceration Narrative Narrative: Patient is a 58-year-old female with no known significant past medical history who presented to the emergency department with chief complaint of left hand laceration near her pinky finger. States that this morning she was attempting to clean a crockpot and was too heavy for her causing her to drop this and hit her hand on the [place] countertop as well. She states that she went to an urgent care however they noted that there was concern for flexor tendon injury and sent her here for evaluation management. Patient states that she is unsure when her last tetanus shot was. Patient denies any other daily medications. [facility] Medical History Microcalcification of left breast on mammogram Fibroadenoma of left breast Meniere's disease Generalized anxiety disorder Insomnia Home Medications ?Medication ?Instructions ?Recorded ?Last Taken ?Type citalopram 20 mg tablet 20 mg PO DAILY 01/22/14 01/22/14 08:00 History glucosamine DMy-pvz-echjipwbepr tab PO 10/05/20 Unknown History 750 mg-375 mg-400 mg tablet multivitamin 1 tab PO DAILY 10/05/20 Unknown History doxycycline hyclate 100 mg capsule 100 mg PO BID 7 days #14 caps 03/16/24 Unknown Rx Allergy/AdvReac Type Severity Reaction Status Date / Time No Known Allergies Allergy Verified 03/16/24 10:31 Family History Father Asthma Cancer skin Mother Osteoporosis Surgical History s/p left breast stereotactic biopsy (~12/18/17) Hx of rhinoplasty Social History Smoking Status: Never smoker second hand exposure: No alcohol intake: never substance use type: does not use caffeine: Yes what type of physical activity do you participate in: none frequency: does not exercise seatbelt use: always ROS ROS ED ROS Narrative Constitutional: Denies any fevers, chills, headaches Musculoskeletal: Complains of hand laceration as above, complains of some pain near the site and states that she cannot flex her finger Skin: See above EXAM Physical Exam Narrative Exam Narrative: Constitutional: Patient lying in bed rest comfortably did not appear to be acute distress Head: Atraumatic, normocephalic Eyes ears nose and throat: Pupils equal round reactive to light bilaterally Cardiovascular regular rate and rhythm Extremities: Radial pulses +2/4 in the bilateral extremities, patient is unable to flex her left pinky finger at the DIP and PIP joint she is able to flex it from the proximal metacarpal head, patient is able to give the okay sign and oppose her thumb to her pinky and giving a thumbs up sign Neurological: Patient is a sensation grossly intact in the median, radial and ulnar nerve distributions bilaterally, patient was following commands knew that she was at [facility] Skin: Patient has a laceration noted at the proximal fifth metacarpal head that measures approximately 1 cm in nature no active bleeding noted Const Vital Signs: 03/16/24 10:30 Temperature 96.9 F L Temperature Source Temporal Pulse Rate 77 Respiratory Rate 14 Blood Pressure 116/69 Blood Pressure Mean 84 Pulse Ox 98 Oxygen Delivery Method Room Air MDM MDM MDM Narrative Medical decision making narrative: Patient is a 58-year-old female who presents to the emerged part with chief complaint of inability to flex her left pinky as well as a laceration near at the base of her fifth finger. Patient will have x-ray performed here her tetanus shot will be updated and then be reevaluated. Patient hand x-ray reviewed and showed no fracture or dislocation of the left hand no radiodense foreign body noted there is soft tissue swelling overlying the proximal aspect of the left fifth finger. Patient's laceration was repaired here in the emergency department. Placed in splint. She was encouraged to follow-up with Dr. Valentine orthopedics tomorrow and call his office in the morning. She was sent a prescription for doxycycline and encouraged to start taking this today. Patient was encouraged return with worsening symptoms or other concerns. She has agreed the plan she would like to go she was discharged home in stable condition. Procedure note Procedure name: Laceration repair Indication: Reduce risk of infection Location: Patient has a approximately 1 cm laceration at the proximal metacarpal head at the base of the fifth finger Preprocedure diagnosis: Laceration Postprocedure diagnosis: Repaired laceration Informed consent was obtained prior to procedure started. Procedure: The appropriate timeout was taken. The area was prepped and draped in usual sterile fashion. Local anesthesia was achieved using 3 cc of lidocaine 1% without epinephrine. Wound was copiously irrigated. Five 4-0 Ethilon interrupted sutures were placed. Estimated blood loss was less than 0.5 mL. Dressing was applied to the area and anticipatory guidance, as well as standard postprocedure care was explained. Return precautions are given. Patient Toller procedure well without any complications. Follow-up visit for suture removal and evaluation of laceration. Radiography Diagnostic Testing: Clinical Impression(s) from Imaging Studies Hand X-Ray 03/16/24 10:55 IMPRESSION: No fracture or dislocation in the left hand. No radiodense foreign body. Soft tissue swelling overlying the proximal aspect of the left fifth finger. Electronically Signed: Gregorio Carlin MD at 11:26 EDT , Discharge Plan Triage Chief Complaint: Laceration ED Provider: Alex Torres Dx/Rx/DC Orders Clinical Impression: Finger laceration involving tendon Prescriptions: New doxycycline hyclate 100 mg capsule 100 mg PO BID 7 Days Qty: 14 0RF No Action multivitamin Tablet 1 tab PO DAILY glucosamine YAr-thh-zxlxkthpxs 750-375-400 mg tablet PO citalopram 20 MG tablet 20 mg PO DAILY Patient Comments: DEPRESSION Primary Care Provider: Josue Rey Referrals: Josue Rey MD [Primary Care Provider] - Jese Valentine DO [Med Staff - Active Staff] - Activity Restrictions/Additional Instructions: Call Dr. Valentine's office tomorrow for an appointment. Tell them that you are here and had a laceration repaired and is concerned that you have a flexor tendon injury in your pinky finger and need to be evaluated. Take antibiotics as prescribed. Return with worsening symptoms or other concerns. Print Language: Citizen Of [place] Disposition Disposition: Home, Self Care
[2024-03-16] MEDS: Lidocaine 1% (20 ml mdv) 20 ML Vial 10 ML INFILT (12:17)
[2024-03-16] MEDS: Diphth,Pertuss(Acell),Tet Vac 0.5 ML Vial IM (12:18)
[2024-03-16 12:24] VITALS: BP 125/83; PULSE 66; RESP 16; TEMP 36.1; O2SAT 98
== END 2024-03-16 12:32 | disposition home or self-care (01) ==
PROVIDERS: Emergency Provider Emergency Medicine; PCP Family Medicine; Visit Provider Emergency Medicine
DX: S66.127A Laceration of flexor muscle, fascia and tendon of left little finger at wrist and hand level, initial encounter (principal); S61.412A Laceration without foreign body of left hand, initial encounter; W22.09XA Striking against other stationary object, initial encounter; Y93.E9 Activity, other interior property and clothing maintenance; Y99.8 Other external cause status; Z23 Encounter for immunization
CPT/HCPCS: 12001; 73130; 90471; 90715; 99283

== ENCOUNTER 2024-05-30 09:00 | Outpatient (RCR) | payer OTHER, SELFPAY ==
--- NOTE | 2024-04-08 11:14 | HP.OTEVAL ---
Patient's Visit Information Visit Information Visit Information: DEBORA SENA is a 58 year old F, referred to Occupational Therapy by TYRELL PORRAS, with a diagnosis of left small finger flexor tendon laceration. Date of Evaluation: 04/08/24 Occupational Therapist: Oxana Guerra, OTR/L, CHT Subjective Subjective: This 58 year old female was seen for OT eval with dx of left small finger flexor tendon laceration , zone 2. pt states in March 16 she dropped a crock pot while washing it and lacerated her left LF. pt went to ER and was sent to local Dr. when she was told he did not repair tendons she went to [facility] for her care. Time lapse form DOI to DOS 2 weeks and 1 day. Pt underwent sx repair on 04/01/24 zone 2 left small finger 6-strand M-Tag repair. Pt arrives with soft sx dressing on left UE and in need of skilled OTR/L,CHT to mtg. pts recovery from newly healing structures. pt limited with all ADLs due to restrictions of healing tendon protocol. ROM ROM Comments: pt demo good PROM of of LF flexion with active ext to dorsal blocking orthosis- LF dem slight DIP flexion at 10* Strength Strength Comments: will test later date Quick DASH-Disab of Arm,Shoulder& Hand Quick DASH Score: 63.3325 Goals Goal:100% adherence to protocol: Yes Comment: zone 2 flexor tendon protocol given on order Goal:Daily scar massage when approriate: Yes Goal:ROM equal to unaffected hand: Yes Goal:Ramp Manager/Pinch strength at least 75% of unaffected hand: Yes Comment: will not initiate until cleared for strengthening Goal:No pain with affected hand use: Yes Goal:Full use of affected hand in daily activities including work: Yes Goal:Decrease scar hypersensitivity: Yes Rehabilitation General Assessment: Pt arrives s/p 7 days from repair of zone 2 flexor tendon of left small finger. Pt in need of custom dorsal blocking orthosis to allow for protection and support while structures heal. Pt demo need of skilled OT services 1-2x week for 6-8 weeks to return pt to functional use of left hand with ADLs and other work task. Today therapist alyson. custom orthosis placing wrist neutral with MPs 30-45* and IPs at 0* ( LF continues to have slight flexion resting posture) Therapist gave instructions on use of orthosis ( on at all times) pt instructed to unstrap to perform PROM of MCP,PIP and DIP with active extension to the Dorsal blocking orthosis- pt demo ex. in clinic and did well. therapist advised pt in edema control and skin care. pt demo understanding and agrees to POC. Rehabilitation Potential: Good Anticipated Interventions Anticipated Interventions: Early Active Motion, A/AAROM/PROM, Edema Control, Scar Care, Triggerpoint Release, Desensitization, Wound Care, Modalities, Orthoses, Joint Protection/Energy Conservation, Fine Motor Coord/Javier, Education re assistive Equipment, Education re Diagnosis and Home Program Visit Plan Frequency: 1-2x /Week Duration: 2 Months General Plan: 3-5 days post op or sooner Forearm based Dorsal Blocking wrist/finger orthosis (wrist Neutral,/ MPS 30-45* flexion/IPs 0* ( unless digital nerve repair) Edema mtg. and wound care Passive flexion/ active extension of fingers in orthosis 2-3 weeks post op light fisting , Active ROM of fingers, 50% fisting, gradual increase to full fist to 6 weeks. Lateral support of DIP, active blocking 4 week ultrasound 6 week D/C orthosis , begin light activity 8 week light putty/ strengthening 12 weeks return to full activity TEXT: Thank you for the opportunity to evaluate your patient. For Medicare and Medicare HMO plans, please review the plan of care and approve it. It will need to be FAXED BACK to us at [phone] for Medicare purposes. Please let me know if there are questions or concerns regarding this plan of care. Physician Signature: Date:
--- NOTE | 2024-10-02 10:10 | HP.OT.NRP ---
Patient Information Patient Information: DEBORA SENA was seen in my office for initial evaluation on 04/08/24. The following Plan of Care was established for this patient: POC Established Initial Frequency: 1-2x /Week Initial Duration: 2 Months Plan: 6 week D/C orthosis , begin light activity 8 week light putty/ strengthening 12 weeks return to full activity Anticipated Interventions Anticipated Interventions: Early Active Motion, A/AAROM/PROM, Edema Control, Scar Care, Triggerpoint Release, Desensitization, Wound Care, Modalities, Orthoses, Joint Protection/Energy Conservation, Fine Motor Coord/Javier, Education re assistive Equipment, Education re Diagnosis and Home Program Last Seen Last Seen: This patient was last seen in our office 05/30/24. Pertinent comments regarding their Occupational therapy will appear below: pt was last seen on 05/30/24. No further apts have been sx for dx and due to time lapse in services pt d/c at this time. At this point I will be discontinuing this patient from occupational therapy. I would be happy to see this patient again in the future if found appropriate by the physician. Thank you! Oxana Guerra, OTR/L, CHT
== END 2024-05-30 19:00 | disposition home or self-care (01) ==
LOC: OT 09:00
PROVIDERS: PCP Family Medicine
DX: S56.12 Laceration of flexor muscle, fascia and tendon of other and unspecified finger at forearm level (principal); Z98.890 Other specified postprocedural states
CPT/HCPCS: 97035; 97110; 97140; 97166; 97760